=== PATIENT | male | born 1965 | race African-American/Black ===

== ENCOUNTER 2017-06-16 12:18 | Inpatient (IN) | payer OTHER ==
[2017-06-16 19:33] VITALS: BMI 22.8
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
[2017-06-16] MEDS ORDERED: IBUPROFEN 400 MG TABLET (FP) PO PRN (20:45)
[2017-06-16] MEDS ORDERED: MAGNESIUM HYDROX 2400MG/30ML ORAL SUSPENSION 30 ML CUP PO PRN (20:45)
[2017-06-16] MEDS ORDERED: P-EPHED 60MG/TRIPROLIDI 2.5MG TABLET PO PRN (20:45)
[2017-06-16] MEDS ORDERED: MENTHOL/PHENOL 1 EACH UD MM PRN (20:45)
[2017-06-16] MEDS ORDERED: guaiFENesin/D-METHORPHAN HB 10 ML UNIT-DOSE CUPS PO PRN (20:45)
[2017-06-16] MEDS ORDERED: hydrOXYzine PAMOATE 50 MG CAPSULE (FP) PO PRN (20:45)
[2017-06-16] MEDS ORDERED: chlordiazePOXIDE HCL 25 MG CAPSULE PO PRN (20:45)
[2017-06-16] MEDS ORDERED: MAGNESIUM CITRATE 300 ML BOTTLE PO PRN (20:45)
[2017-06-16] MEDS ORDERED: NICOTINE POLACRILEX 4 MG GUM BC PRN (20:45)
[2017-06-16] MEDS ORDERED: MAG HYDROX/AL HYDROX/SIMETH 30 ML UNIT-DOSE CUP PO PRN (20:45)
[2017-06-16] MEDS ORDERED: LOPERAMIDE HCL 2 MG CAPSULE PO PRN (20:45)
[2017-06-16] MEDS ORDERED: ALBUTEROL SO4 18 GM HFA INHALER IH PRN (20:49)
[2017-06-16] MEDS ORDERED: ALBUTEROL SO4 2.5/IPRATROPIUM 0.5 INH SOL 3 ML VIAL.NEB. NEB PRN (20:49)
[2017-06-16] MEDS: GABAPENTIN 300 MG CAPSULE (FP) PO SCH (21:43)
[2017-06-16] MEDS: THIAMINE HCL 100 MG TABLET (FP) PO SCH (21:43)
[2017-06-16] MEDS: chlordiazePOXIDE HCL 25 MG CAPSULE PO SCH (22:37)
[2017-06-17 00:44] LABS: URINE APPEARANCE CLEAR; URINE BILIRUBIN NEGATIVE (NEGATIVE); URINE BLOOD NEGATIVE (NEGATIVE); URINE COLOR YELLOW; URINE GLUCOSE (UA) NEGATIVE (NEGATIVE); URINE KETONE NEGATIVE (NEGATIVE); URINE LEUK ESTERASE NEGATIVE (NEGATIVE); URINE NITRITE NEGATIVE (NEGATIVE); URINE PROTEIN NEGATIVE (NEGATIVE)
[2017-06-17] MEDS: chlordiazePOXIDE HCL 25 MG CAPSULE PO SCH ×3 (06:11→17:33)
[2017-06-17] MEDS: GABAPENTIN 300 MG CAPSULE (FP) PO SCH ×2 (06:11→13:52)
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
[2017-06-17] MEDS: PRENATAL VITAMINS W/ FOLIC ACID TABLET (FP) PO SCH (10:24)
[2017-06-17] MEDS: NICOTINE 21 MG/24 HOURS TOPICAL PATCH TD SCH (10:24)
[2017-06-17 10:36] LABS: HEMOGLOBIN 12.5 GM/dL (11.7-16.9); MCH 32.4 pg (25.7-33.7); MCHC 32.9 g/dl (32.0-35.9); MEAN CELL VOLUME 98.5 fl (80-96); MEAN PLT VOLUME 8.9 fl (7.5-11.1); PLATELET COUNT 161 K/MM3 (134-434); RBC 3.85 M/mm3 (4.00-5.60); RDW 12.6 % (11.9-15.9); WHITE BLOOD COUNT 5.5 K/mm3 (4.0-10.0)
[2017-06-17 10:43] LABS: ALBUMIN 2.9 g/dl (3.4-5.0); ANION GAP 8 (8-16); BLOOD UREA NITROGEN 16 mg/dL (7-18); CALCIUM 7.8 mg/dL (8.5-10.1); CHLORIDE 106 mmol/L (98-107); CO2 25 mmol/L (21-32); CREATININE 1.4 mg/dL (0.7-1.3); GLUCOSE,RANDOM 175 mg/dL (74-106); POTASSIUM 3.8 mmol/L (3.5-5.1); SGOT/AST 33 U/L (15-37); SGPT/ALT 37 U/L (12-78); SODIUM 139 mmol/L (136-145)
[2017-06-17 10:44] LABS: ALK PHOS 75 U/L (45-117); BILIRUBIN,TOTAL 0.3 mg/dL (0.2-1.0); TOT PROT 6.2 g/dl (6.4-8.2)
[2017-06-17] MEDS: EMTRICITABINE 200MG/TENOFOVIR 300MG PO SCH (12:35)
[2017-06-17] MEDS: DOLUTEGRAVIR SODIUM 50 MG TABLET PO SCH (12:35)
[2017-06-17] MEDS: DARUNAVIR ETHANOLATE 800 MG TAB PO SCH (12:35)
[2017-06-17] MEDS: RITONAVIR 100 MG TABLET PO SCH (12:35)
--- NOTE | 2017-06-17 13:16 | PN ---
S CIWA - CIWA Score Nausea/Vomitin Muscle Tremors: 3 Anxiety: 3 Agitation: 2 Paroxysmal Sweats: 4-Forehead w/Sweat Beads Orientation: 0-Oriented Tacttile Disturbances: 1-Very Mild Itch/Numbness Auditory Disturbances: 1-Very Mild Visual Disturbances: 1-Very Mild Sensitivity Headache: 2-Mild CIWA-Ar Total Score: 19 BHS Progress Note (SOAP) Subjective: Shakes, sweats, anxiety and neuropathic pain Objective: 06/17/17 13:15 Vital Signs 06/17/17 06/17/17 06:47 09:26 Temperature 99.3 F Pulse Rate 74 80 Respiratory 18 18 Rate Blood Pressure 122/77 119/80 Laboratory Last Values WBC 5.5 K/mm3 (4.0-10.0) 06/17/17 08:00 RBC 3.85 M/mm3 (4.00-5.60) L 06/17/17 08:00 Hgb 12.5 GM/dL (11.7-16.9) 06/17/17 08:00 Hct 38.0 % (35.4-49) 06/17/17 08:00 MCV 98.5 fl (80-96) H 06/17/17 08:00 MCH 32.4 pg (25.7-33.7) 06/17/17 08:00 MCHC 32.9 g/dl (32.0-35.9) 06/17/17 08:00 RDW 12.6 % (11.9-15.9) 06/17/17 08:00 Plt Count 161 K/MM3 (134-434) 06/17/17 08:00 MPV 8.9 fl (7.5-11.1) D 06/17/17 08:00 Sodium 139 mmol/L (136-145) 06/17/17 08:00 Potassium 3.8 mmol/L (3.5-5.1) 06/17/17 08:00 Chloride 106 mmol/L (98-107) 06/17/17 08:00 Carbon Dioxide 25 mmol/L (21-32) 06/17/17 08:00 Anion Gap 8 (8-16) 06/17/17 08:00 BUN 16 mg/dL (7-18) 06/17/17 08:00 Creatinine 1.4 mg/dL (0.7-1.3) H 06/17/17 08:00 Creat Clearance w eGFR 53.01 (>60) 06/17/17 08:00 Random Glucose 175 mg/dL (74-106) H D 06/17/17 08:00 Calcium 7.8 mg/dL (8.5-10.1) L 06/17/17 08:00 Total Bilirubin 0.3 mg/dL (0.2-1.0) D 06/17/17 08:00 AST 33 U/L (15-37) D 06/17/17 08:00 ALT 37 U/L (12-78) D 06/17/17 08:00 Alkaline Phosphatase 75 U/L (45-117) 06/17/17 08:00 Total Protein 6.2 g/dl (6.4-8.2) L 06/17/17 08:00 Albumin 2.9 g/dl (3.4-5.0) L 06/17/17 08:00 Urine Color Yellow 06/16/17 21:55 Urine Appearance Clear 06/16/17 21:55 Urine pH 5.0 (5.0-8.0) D 06/16/17 21:55 Ur Specific [place] 1.020 (1.001-1.035) 06/16/17 21:55 Urine Protein Negative (NEGATIVE) 06/16/17 21:55 Urine Glucose (UA) Negative (NEGATIVE) 06/16/17 21:55 Urine Ketones Negative (NEGATIVE) 06/16/17 21:55 Urine Blood Negative (NEGATIVE) 06/16/17 21:55 Urine Nitrite Negative (NEGATIVE) 06/16/17 21:55 Urine Bilirubin Negative (NEGATIVE) 06/16/17 21:55 Urine Urobilinogen 2.0 mg/dL (0.2-1.0) 06/16/17 21:55 Ur Leukocyte Esterase Negative (NEGATIVE) 06/16/17 21:55 Labs noted Assessment: 06/17/17 13:16 Withdrawal sx Plan: Continue detox
--- NOTE | 2017-06-17 16:20 | DS ---
[facility] Detox Discharge Summary Admission Date: 06/16/17 Discharge Date: 06/17/17 - History Present History: Alcohol Dependence, Cocaine Dependence, Opioid Dependence Pertinent Past History: HIV +, COPD, Neuropathy and PTSD - Physical Exam Results Vital Signs: Vital Signs Temperature 97.2 F L 06/17/17 14:53 Pulse Rate 84 06/17/17 14:53 Respiratory Rate 18 06/17/17 14:53 Blood Pressure 133/75 06/17/17 14:53 O2 Sat by Pulse Oximetry (%) - Medication Discharge Medications: Ambulatory Orders Nortriptyline HCl [Pamelor] 75 mg PO HS 08/21/14 Darunavir Ethanolate [Prezista -] 800 mg PO DAILY #30 tablet 08/25/14 Dolutegravir Sodium [Tivicay] 50 mg PO DAILY #30 tablet 08/25/14 Emtricitabine/Tenofovir [Truvada -] 1 tab PO DAILY #30 tablet 08/25/14 Gabapentin [Neurontin -] 300 mg PO HS #30 capsule 08/25/14 Ritonavir [Norvir -] 100 mg PO DAILY #30 08/25/14 Gabapentin [Neurontin -] 300 mg PO HS #30 capsule 10/08/14 Quetiapine Fumarate [Seroquel -] 200 mg PO HS #30 tablet 10/09/14 - Diagnosis (1) Alcohol dependence with uncomplicated withdrawal Current Visit: Yes Status: Acute (2) Cocaine dependence, uncomplicated Current Visit: Yes Status: Acute (3) Schizoaffective disorder Current Visit: Yes Status: Chronic (4) COPD (chronic obstructive pulmonary disease) Current Visit: Yes Status: Chronic Qualifiers: COPD type: chronic bronchitis (5) Neuropathy Current Visit: Yes Status: Chronic (6) Nicotine dependence Current Visit: Yes Status: Chronic Qualifiers: Nicotine product type: cigarettes Substance use status: uncomplicated Qualified Code(s): F17.210 - Nicotine dependence, cigarettes, uncomplicated (7) HIV (human immunodeficiency virus infection) Current Visit: No Status: Chronic - AMA Did Patient Leave Against Medical Advice: Yes
--- NOTE | 2017-06-17 16:47 | EKG ---
Test Reason : Blood Pressure : / mmHG Vent. Rate : 068 BPM Atrial Rate : 068 BPM P-R Int : 162 ms QRS Dur : 076 ms QT Int : 414 ms P-R-T Axes : 059 021 128 degrees QTc Int : 440 ms NORMAL SINUS RHYTHM POSSIBLE LEFT ATRIAL ENLARGEMENT SEPTAL INFARCT , AGE UNDETERMINED NONSPECIFIC ST AND T WAVE ABNORMALITY ABNORMAL ECG NO PREVIOUS ECGS AVAILABLE Confirmed by MORALES QUINONES MD ([id number]) on 06/17/2017 4:47:17 PM Referred By: Confirmed By:MORALES QUINONES MD
[2017-06-17] MEDS: ACETAMINOPHEN 325 MG TABLET (FP) PO PRN (17:33)
[2017-06-17] MEDS ORDERED: traZODone HCL 50 MG TABLET (FP) PO SCH (22:00)
[2017-06-18] MEDS: PERPHENAZINE 4 MG TABLET PO SCH ×3 (00:31→22:27)
[2017-06-18] MEDS: chlordiazePOXIDE HCL 25 MG CAPSULE PO SCH ×4 (00:31→17:16)
[2017-06-18] MEDS: THIAMINE HCL 100 MG TABLET (FP) PO SCH ×2 (00:31→22:25)
[2017-06-18] MEDS: GABAPENTIN 300 MG CAPSULE (FP) PO SCH ×4 (00:31→22:25)
[2017-06-18] MEDS: risperiDONE 1 MG TABLET (FP) PO SCH ×2 (00:31→22:25)
[2017-06-18] MEDS: ACETAMINOPHEN 325 MG TABLET (FP) PO PRN (05:25)
[2017-06-18] MEDS ORDERED: PERPHENAZINE 8 MG TABLET PO SCH (10:00)
[2017-06-18] MEDS: RITONAVIR 100 MG TABLET PO SCH (10:32)
[2017-06-18] MEDS: DARUNAVIR ETHANOLATE 800 MG TAB PO SCH (10:32)
[2017-06-18] MEDS: EMTRICITABINE 200MG/TENOFOVIR 300MG PO SCH (10:32)
[2017-06-18] MEDS: SERTRALINE HCL 50 MG TABLET (FP) PO SCH (10:32)
[2017-06-18] MEDS: DOLUTEGRAVIR SODIUM 50 MG TABLET PO SCH (10:32)
[2017-06-18] MEDS: PRENATAL VITAMINS W/ FOLIC ACID TABLET (FP) PO SCH (10:32)
[2017-06-18] MEDS: BENZTROPINE MESYLATE 1 MG TABLET (FP) PO SCH (10:33)
[2017-06-18] MEDS: NICOTINE 21 MG/24 HOURS TOPICAL PATCH TD SCH (10:33)
[2017-06-18] MEDS: AMMONIUM LACTATE 12% LOTION 225 GM BOTTLE TP SCH ×2 (13:39→22:25)
[2017-06-18] MEDS: TOLNAFTATE 1% CREAM 15 GM TUBE TP SCH ×2 (13:40→22:26)
--- NOTE | 2017-06-18 15:12 | PN ---
[facility] CIWA - CIWA Score Nausea/Vomitin-No Nausea/No Vomiting Muscle Tremors: 3 Anxiety: 4-Mod. Anxious/Guarded Agitation: 2 Paroxysmal Sweats: 2 Orientation: 2-Disoriented Date<2 days Tacttile Disturbances: 2-Mild Itch/Numbness/Burn Auditory Disturbances: 0-None Visual Disturbances: 2-Mild Sensitivity Headache: 0-None Present CIWA-Ar Total Score: 17 BHS Progress Note (SOAP) Subjective: Body Aches, Sweating, Anxious, Tremors. Objective: PT. A & O X 2 (UNCERTAIN ABOUT CURRENT DAY / DATE). PT. OBSERVED AMBULATING ON UNIT. NO ACUTE DISTRESS. 06/18/17 15:13 Vital Signs Temperature 97.0 F L 06/18/17 14:43 Pulse Rate LABS ONTED. 85 06/18/17 14:43 Respiratory Rate 18 06/18/17 14:43 Blood Pressure 112/71 06/18/17 14:43 O2 Sat by Pulse Oximetry (%) Laboratory Tests 06/16/17 06/17/17 06/17/17 21:55 08:00 08:00 WBC 5.5 RBC 3.85 L Hgb 12.5 Hct 38.0 MCV 98.5 H MCH 32.4 MCHC 32.9 RDW 12.6 Plt Count 161 MPV 8.9 D Sodium Potassium Chloride Carbon Dioxide Anion Gap BUN Creatinine Creat Clearance w eGFR Random Glucose Calcium Total Bilirubin AST ALT Alkaline Phosphatase Total Protein Albumin Urine Color Yellow Urine Appearance Clear Urine pH 5.0 D Ur Specific [place] 1.020 Urine Protein Negative Urine Glucose (UA) Negative Urine Ketones Negative Urine Blood Negative Urine Nitrite Negative Urine Bilirubin Negative Urine Urobilinogen 2.0 Ur Leukocyte Esterase Negative RPR Titer Hepatitis C Antibody <0.1 06/17/17 06/17/17 08:00 08:00 WBC RBC Hgb Hct MCV MCH MCHC RDW Plt Count MPV Sodium 139 Potassium 3.8 Chloride 106 Carbon Dioxide 25 Anion Gap 8 BUN 16 Creatinine 1.4 H Creat Clearance w eGFR 53.01 Random Glucose 175 H D Calcium 7.8 L Total Bilirubin 0.3 D AST 33 D ALT 37 D Alkaline Phosphatase 75 Total Protein 6.2 L Albumin 2.9 L Urine Color Urine Appearance Urine pH Ur Specific [place] Urine Protein Urine Glucose (UA) Urine Ketones Urine Blood Urine Nitrite Urine Bilirubin Urine Urobilinogen Ur Leukocyte Esterase RPR Titer Nonreactive Hepatitis C Antibody LABS NOTED. Assessment: 06/18/17 15:14 WITHDRAWAL SYMPTOMS. Plan: CONTINUE DETOX. INCREASE DAILY PO FLUID INTAKE. BGM ACBK FOR ELEVATED RANDOM ADMISSION GLUCOSE LEVEL. D/C MAGNESIUM-CONTAINING MEDS. FOR ABNORMAL ADMISSION RENAL LAB VALUES.
[2017-06-18] MEDS: chlordiazePOXIDE 5 MG CAPSULE PO SCH (22:25)
[2017-06-19] MEDS: GABAPENTIN 300 MG CAPSULE (FP) PO SCH (06:03)
[2017-06-19] MEDS: chlordiazePOXIDE 5 MG CAPSULE PO SCH ×2 (06:03→10:06)
[2017-06-19 09:35] VITALS: BP 110/75; PULSE 94; TEMP 97.7
[2017-06-19] MEDS: EMTRICITABINE 200MG/TENOFOVIR 300MG PO SCH (10:06)
[2017-06-19] MEDS: DARUNAVIR ETHANOLATE 800 MG TAB PO SCH (10:06)
[2017-06-19] MEDS: SERTRALINE HCL 50 MG TABLET (FP) PO SCH (10:06)
[2017-06-19] MEDS: DOLUTEGRAVIR SODIUM 50 MG TABLET PO SCH (10:06)
[2017-06-19] MEDS: BENZTROPINE MESYLATE 1 MG TABLET (FP) PO SCH (10:06)
[2017-06-19] MEDS: PRENATAL VITAMINS W/ FOLIC ACID TABLET (FP) PO SCH (10:06)
[2017-06-19] MEDS: RITONAVIR 100 MG TABLET PO SCH (10:06)
[2017-06-19] MEDS: PERPHENAZINE 4 MG TABLET PO SCH (10:06)
[2017-06-19] MEDS: TOLNAFTATE 1% CREAM 15 GM TUBE TP SCH (10:06)
[2017-06-19] MEDS: NICOTINE 21 MG/24 HOURS TOPICAL PATCH TD SCH (10:09)
[2017-06-19] MEDS: AMMONIUM LACTATE 12% LOTION 225 GM BOTTLE TP SCH (10:09)
[2017-06-19] MEDS: ACETAMINOPHEN 325 MG TABLET (FP) PO PRN (10:52)
--- NOTE | 2017-06-19 11:28 | PN ---
BHS Progress Note (SOAP) Subjective: fatigue Achy sweats irritable Objective: 06/19/17 11:26 ambulates steadily Vital Signs Temperature 97.7 F 06/19/17 09:35 Pulse Rate 94 H 06/19/17 09:35 Respiratory Rate 20 06/19/17 09:35 Blood Pressure 110/75 06/19/17 09:35 O2 Sat by Pulse Oximetry (%) Laboratory Last Values WBC 5.5 K/mm3 (4.0-10.0) 06/17/17 08:00 RBC 3.85 M/mm3 (4.00-5.60) L 06/17/17 08:00 Hgb 12.5 GM/dL (11.7-16.9) 06/17/17 08:00 Hct 38.0 % (35.4-49) 06/17/17 08:00 MCV 98.5 fl (80-96) H 06/17/17 08:00 MCH 32.4 pg (25.7-33.7) 06/17/17 08:00 MCHC 32.9 g/dl (32.0-35.9) 06/17/17 08:00 RDW 12.6 % (11.9-15.9) 06/17/17 08:00 Plt Count 161 K/MM3 (134-434) 06/17/17 08:00 MPV 8.9 fl (7.5-11.1) D 06/17/17 08:00 Sodium 139 mmol/L (136-145) 06/17/17 08:00 Potassium 3.8 mmol/L (3.5-5.1) 06/17/17 08:00 Chloride 106 mmol/L (98-107) 06/17/17 08:00 Carbon Dioxide 25 mmol/L (21-32) 06/17/17 08:00 Anion Gap 8 (8-16) 06/17/17 08:00 BUN 16 mg/dL (7-18) 06/17/17 08:00 Creatinine 1.4 mg/dL (0.7-1.3) H 06/17/17 08:00 Creat Clearance w eGFR 53.01 (>60) 06/17/17 08:00 POC Glucometer 112 UNITS (80-120) 06/19/17 06:02 Random Glucose 175 mg/dL (74-106) H D 06/17/17 08:00 Calcium 7.8 mg/dL (8.5-10.1) L 06/17/17 08:00 Total Bilirubin 0.3 mg/dL (0.2-1.0) D 06/17/17 08:00 AST 33 U/L (15-37) D 06/17/17 08:00 ALT 37 U/L (12-78) D 06/17/17 08:00 Alkaline Phosphatase 75 U/L (45-117) 06/17/17 08:00 Total Protein 6.2 g/dl (6.4-8.2) L 06/17/17 08:00 Albumin 2.9 g/dl (3.4-5.0) L 06/17/17 08:00 Urine Color Yellow 06/16/17 21:55 Urine Appearance Clear 06/16/17 21:55 Urine pH 5.0 (5.0-8.0) D 06/16/17 21:55 Ur Specific [place] 1.020 (1.001-1.035) 06/16/17 21:55 Urine Protein Negative (NEGATIVE) 06/16/17 21:55 Urine Glucose (UA) Negative (NEGATIVE) 06/16/17 21:55 Urine Ketones Negative (NEGATIVE) 06/16/17 21:55 Urine Blood Negative (NEGATIVE) 06/16/17 21:55 Urine Nitrite Negative (NEGATIVE) 06/16/17 21:55 Urine Bilirubin Negative (NEGATIVE) 06/16/17 21:55 Urine Urobilinogen 2.0 mg/dL (0.2-1.0) 06/16/17 21:55 Ur Leukocyte Esterase Negative (NEGATIVE) 06/16/17 21:55 RPR Titer Nonreactive (NONREACTIVE) 06/17/17 08:00 Hepatitis C Antibody <0.1 s/co ratio (0.0-0.9) 06/17/17 08:00 labs noted Assessment: 06/19/17 11:27 withdrawal sx Plan: continue detox lidocaine patch for pain
[2017-06-19] MEDS ORDERED: LIDOCAINE 5% TOPICAL PATCH TP SCH (11:30)
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
[2017-06-19] MEDS ORDERED: LIDOCAINE PATCH REMOVAL MC SCH (22:00)
[2017-06-19] MEDS ORDERED: chlordiazePOXIDE HCL 10 MG CAPSULE PO SCH (23:00)
== END 2017-06-19 12:31 | disposition home or self-care (01) | DRG 774 ==
LOC: YASAS 12:18 → EDBD 12:18 → Y3N 18:11
PROVIDERS: ADMIT Internal Medicine; ATTEND Internal Medicine
PROC: HZ2ZZZZ Detoxification Services for Substance Abuse Treatment (ICD-10-PCS; principal; 2017-06-16)
DX: F10.230 Alcohol dependence with withdrawal, uncomplicated (principal); F14.20 Cocaine dependence, uncomplicated; F17.210 Nicotine dependence, cigarettes, uncomplicated; F91.8 Other conduct disorders; F25.9 Schizoaffective disorder, unspecified; F43.10 Post-traumatic stress disorder, unspecified; F19.24 Other psychoactive substance dependence with psychoactive substance-induced mood disorder; J44.9 Chronic obstructive pulmonary disease, unspecified; G62.9 Polyneuropathy, unspecified; M54.30 Sciatica, unspecified side; Z21 Asymptomatic human immunodeficiency virus [HIV] infection status; G47.00 Insomnia, unspecified; E03.9 Hypothyroidism, unspecified; Z87.438 Personal history of other diseases of male genital organs; Z91.5 Personal history of self-harm
CPT/HCPCS: 36415; 80053; 81003; 82962; 85027; 86593; 86803; 93005; 93010; J2794

== ENCOUNTER 2018-07-09 13:54 | Inpatient (IN) | payer OTHER ==
[2018-07-09 14:11] VITALS: BMI 20.9
--- NOTE | 2018-07-09 16:14 | HP ---
CIWA Score Nausea/Vomitin Muscle Tremors: 4-Moderate,w/Arms Extend Anxiety: 3 Agitation: 0-Normal Activity Paroxysmal Sweats: 2 Orientation: 0-Oriented Tacttile Disturbances: 2-Mild Itch/Numbness/Burn Auditory Disturbances: 0-None Visual Disturbances: 0-None Headache: 0-None Present CIWA-Ar Total Score: 16 - Admission Criteria OASAS Guidelines: Admission for Medically Managed Detox: Requires at least one of the followin. CIWA greater than 12 2. Seizures within the past 24 hours 3. Delirium tremens within the past 24 hours 4. Hallucinations within the past 24 hours 5. Acute intervention needed for co occurring medical disorder 6. Acute intervention needed for co occurring psychiatric disorder 7. Severe withdrawal that cannot be handled at a lower level of care (continued vomiting, continued diarrhea, abnormal vital signs) requiring intravenous medication and/or fluids 8. Admission [facility] Chief Complaint: "My Addiction is Out Of Control. I am also [place]-Mandated to be here." Patient is here for Detox from Alcohol. Allergies/Adverse Reactions: Allergies Allergy/AdvReac Type Severity Reaction Status Date / Time No Known Allergies Allergy Verified 07/09/18 15:33 History of Present Illness: Patient is a 53 YO male here for Detox from Alcohol. Patient also reports using Crack Cocaine, K2, and Cabnnabis. Patient also reports history of prescription Opioid use (as part of Pain Management), this confirmed by [facility] Review. UDS today Negative for Opiates. Patient Reports that his Pain Management Medical Provider Discharged him from Practice several months ago because he tested Positive for Cocaine. Patient also reports that he is HIV Positive, and that he has been prescribed medication for this in past ([facility]) but that he has not taken H.I.V. medication for approx. 1 year now. Patient advised to Return to [facility] after Discharge from Detox / Rehab for further evaluation. Patient verbalized understanding of Recommendation. Confidential Drug Utilization Report Search Terms: Manish Harrison, 1965 Search Date: 07/09/2018 04:01:16 PM The Drug Utilization Report below displays all of the controlled substance prescriptions, if any, that your patient has filled in the last twelve months. The information displayed on this report is compiled from pharmacy submissions to the Department, and accurately reflects the information as submitted by the pharmacies. This report was requested by: Chilo Wilkes Heather | Reference #: [id number] You have not added a DWAINE number. Keeping your DWAINE number(s) up to date on the My DWAINE Numbers page will enable the separation of your prescriptions from others ' in the search results. Others' Prescriptions Patient Name: Manish Terry Date: 1965 Address: [address] [place] [address] Sex: Male Rx Written Rx Dispensed Drug Quantity Days Supply Prescriber Name 01/29/2018 01/29/2018 oxycodone-acetaminophen 10-325 mg tab 45 30 Melina-Occean, Stephany 12/25/2017 12/25/2017 oxycodone-acetaminophen 10-325 mg tab 45 30 Melina-Occean, Stephany 11/30/2017 12/07/2017 lyrica 75 mg capsule 40 10 Tayts, Lev DO 11/17/2017 11/22/2017 oxycodone-acetaminophen 10-325 mg tab 45 30 Ribeiro, Andres 11/06/2017 11/10/2017 oxycodone-acetaminophen 10-325 mg tab 20 15 Ribeiro, Andres 10/05/2017 10/05/2017 oxycodone-acetaminophen 10-325 mg tab 45 23 Ribeiro, Andres 09/05/2017 09/11/2017 oxycodone-acetaminophen 10-325 mg tab 30 30 Ribeiro, Andres 08/10/2017 08/10/2017 oxycodone-acetaminophen 10-325 mg tab 30 30 Ribeiro, Andres 07/31/2017 07/31/2017 lorazepam 0.5 mg tablet 30 15 Amelie Oneal) 07/11/2017 07/11/2017 oxycodone-acetaminophen 10-325 mg tab 30 30 Ribeiro, Andres 07/06/2017 07/11/2017 zolpidem tartrate 5 mg tablet 30 30 Natacha Crook MD * - Drugs marked with an asterisk are compound drugs. If the compound drug is made up of more than one controlled substance, then each controlled substance will be a separate row in the table. Exam Limitations: No Limitations - Ebola screening Have you traveled outside of the country in the last 21 days: No Have you had contact with anyone from an Ebola affected area: No Have you been sick,other than usual withdrawal symptoms: No Do you have a fever: No - Review of Systems Constitutional: Diaphoresis, Loss of Appetite, Malaise, Night Sweats, Unintentional Wgt. Loss (Lost Approx. 15 lbs. over last 6 months.), Other ( Patient Ambulates with Assistance of a Walker.) EENT: reports: No Symptoms Reported Respiratory: reports: SOB with Exertion Cardiac: reports: Syncope (X 1, approx. 8 weeks ago. Patient was evaluated at Hospital. No Apparent Reason / Diagnosis Identified, according to Patient.) GI: reports: Diarrhea, Nausea, Poor Appetite, Vomiting, Abdominal cramping : reports: Frequency Musculoskeletal: reports: Back Pain (History of Degenerative Disc Disease.), Joint Pain, Joint Stiffness Integumentary: reports: No Symptoms Reported Neuro: reports: Numbness (In Fingertips of 4th adn 5th Fingers of Rigth Hand and throughout Left Leg and Foot.), Tremors Endocrine: reports: No Symptoms Reported Hematology: reports: No Symptoms Reported Psychiatric: reports: Judgement Intact, Mood/Affect Appropiate, Orientated x3, Anxious, Depressed (Takes Medication.) Other Systems: Reviewed and Negative Patient History - Patient Medical History Hx Anemia: No Hx Asthma: No Hx Chronic Obstructive Pulmonary Disease (COPD): No Hx Cancer: No Hx Cardiac Disorders: No (Possible 'Enlarged Heart.' Pt. did not follow-up after Initially Notified.) Hx Congestive Heart Failure: No Hx Hypertension: No Hx Hypercholesterolemia: No Hx Pacemaker: No HX Cerebrovascular Accident: No Hx Seizures: No Hx Dementia: Yes (self-reported memory loss, Took Medication in past, Unable to Recall Name.) Hx Diabetes: No Hx Gastrointestinal Disorders: No Hx Liver Disease: No Hx Genitourinary Disorders: No Hx Sexually Transmitted Disorders: No Hx Renal Disease (ESRD): No Hx Thyroid Disease: No Hx Human Immunodeficiency Virus (HIV): Yes (TRICAY, TRUVADA, NOVIR, PRIZISTA; Has Not Taken for approx. 1 Year.) Hx Hepatitis C: No (Unable to Recall When Last Tested.) Hx Depression: Yes (Takes Medication.) Hx Suicide Attempt: No (PATIENT DENIES SI / HI. PATIENT DENIES CAH.) Hx Bipolar Disorder: Yes (TAKES MEDICATION.) Hx Schizophrenia: Yes (Schizoaffective Disorder.) Other Medical History: DEGENERATIVE DISC DISEASE. - Patient Surgical History Past Surgical History: No Hx Neurologic Surgery: No Hx Cataract Extraction: No Hx Cardiac Surgery: No Hx Lung Surgery: No Hx Breast Surgery: No Hx Breast Biopsy: No Hx Abdominal Surgery: No Hx Appendectomy: No Hx Cholecystectomy: No Hx Genitourinary Surgery: No Hx Section: No Hx Orthopedic Surgery: No Other Surgical History: DENIES. Anesthesia Reaction: No - PPD History Previous Implant?: Yes Documented Results: Negative w/proof Date: 06/18/17 Results: 0 mm PPD to be Administered?: Yes - Reproductive History Patient is a Female of Child Bearing Age (11 -55 yrs old): No (PATIENT IS MALE.) Patient : No - Smoking Cessation Smoking history: Current every day smoker Have you smoked in the past 12 months: Yes Aproximately how many cigarettes per day: 40 Cigars Per Day: 0 Hx Chewing Tobacco Use: No Initiated information on smoking cessation: Yes 'Breaking Loose' booklet given: 07/09/18 (GIVEN ON UNIT.) - Substance & Tx. History Hx Alcohol Use: Yes Hx Substance Use: Yes Substance Use Type: Alcohol, Cocaine, Marijuana Hx Substance Use Treatment: Yes (Last Detox at [facility]: 06/2017; Detox at [facility], 2016.) - Substances Abused Crack Route: Smoking Frequency: Daily Amount used: 20 grams $700. Age of first use: 12 Date of Last Use: 07/08/18 Alcohol Route: Oral Frequency: Daily Amount used: 2 - 3 pints bacardi Age of first use: 16 Date of Last Use: 07/09/18 Marijuana/Hashish Route: Smoking Frequency: Daily Amount used: 10 mg $400 Age of first use: 52 Date of Last Use: 07/09/18 K2 Route: Smoking Frequency: Daily Amount used: 1 bag $100 Age of first use: 42 Date of Last Use: 07/08/18 Family Disease History - Family Disease History Family Disease History: Heart Disease: Mother (), Other: Grandparent ( alzheimers, substance), Father (etoh, ), Mother, Brother (dementia) Admission Physical Exam BHS - Vital Signs Vital Signs: Vital Signs - 24 hr 07/09/18 14:10 Temperature 97.9 F Pulse Rate 102 H Respiratory 18 Rate Blood Pressure 117/76 - Physical General Appearance: Yes: No Apparent Distress, Nourished, Appropriately Dressed , Tremorous, Sweating, Anxious HEENTM: Yes: Hearing grossly Normal, Normocephalic, Normal Voice, LUIS, Pharynx Normal, Other (White Coating Noted on tongue. Patient Reports History of Oral Thrush.) Respiratory: Yes: Chest Non-Tender, Lungs Clear, No Respiratory Distress, No Accessory Muscle Use Neck: Yes: No masses,lesions,Nodules, Supple, Trachea in good position Breast: Yes: Breast Exam Deferred Cardiology: Yes: Regular Rhythm, Regular Rate, S1, S2, Tachycardia Abdominal: Yes: Normal Bowel Sounds, Non Tender, Flat, Soft Genitourinary: Yes: Within Normal Limits Back: Yes: CVA Tenderness, Decreased Range of Motion Musculoskeletal: Yes: Back pain, Joint Stiffness, Muscle Pain, Other (Patient Uses Walker To Assist with Ambulation.) Extremities: Yes: Normal Capillary Refill, Tremors Neurological: Yes: Fully Oriented, Alert, Normal Mood/Affect, Normal Response Integumentary: Yes: Normal Color, Dry, Warm, Other (Dry Skin Noted on Bilateral Feet.) Lymphatic: Yes: Within Normal Limits - Diagnostic (1) Cannabis dependence, uncomplicated Current Visit: Yes Status: Chronic (2) History of schizoaffective disorder Current Visit: Yes Status: Chronic (3) History of bipolar disorder Current Visit: Yes Status: Chronic (4) History of depression Current Visit: Yes Status: Chronic (5) History of degenerative disc disease Current Visit: Yes Status: Suspected (6) Alcohol dependence with uncomplicated withdrawal Current Visit: Yes Status: Acute (7) Cocaine dependence, uncomplicated Current Visit: Yes Status: Chronic (8) HIV (human immunodeficiency virus infection) Current Visit: Yes Status: Chronic Qualifiers: HIV symptom status: unspecified Qualified Code(s): B20 - Human immunodeficiency virus [HIV] disease (9) Neuropathy Current Visit: Yes Status: Chronic (10) Nicotine dependence Current Visit: Yes Status: Chronic Qualifiers: Nicotine product type: cigarettes Substance use status: uncomplicated Qualified Code(s): F17.210 - Nicotine dependence, cigarettes, uncomplicated (11) Memory loss Current Visit: Yes Status: Suspected (12) Enlarged heart Current Visit: Yes Status: Suspected Cleared for Admission S - Detox or Rehab S Level of Care: Medically Managed Detox Regimen/Protocol: Librium BHS Breath Alcohol Content Breath Alcohol Content: 0 Urine Drug Screen - Results Drug Screen Negative: No Urine Drug Screen Results: THC-Marijuana, AMBROSE-Cocaine
[2018-07-09] MEDS ORDERED: MAG HYDROX/AL HYDROX/SIMETH 30 ML UNIT-DOSE CUP PO PRN (16:44)
[2018-07-09] MEDS ORDERED: MENTHOL/PHENOL 1 EACH UD MM PRN (16:44)
[2018-07-09] MEDS ORDERED: P-EPHED 60MG/TRIPROLIDI 2.5MG TABLET PO PRN (16:44)
[2018-07-09] MEDS ORDERED: ACETAMINOPHEN 325 MG TABLET (FP) PO PRN (16:44)
[2018-07-09] MEDS ORDERED: LOPERAMIDE HCL 2 MG CAPSULE PO PRN (16:44)
[2018-07-09] MEDS ORDERED: MAGNESIUM HYDROX 2400MG/30ML ORAL SUSPENSION 30 ML CUP PO PRN (16:44)
[2018-07-09] MEDS ORDERED: guaiFENesin/D-METHORPHAN HB 10 ML UNIT-DOSE CUPS PO PRN (16:44)
[2018-07-09] MEDS ORDERED: chlordiazePOXIDE HCL 25 MG CAPSULE PO ONE (16:44)
[2018-07-09] MEDS ORDERED: chlordiazePOXIDE HCL 25 MG CAPSULE PO PRN (16:44)
[2018-07-09] MEDS ORDERED: IBUPROFEN 400 MG TABLET (FP) PO PRN (16:44)
[2018-07-09] MEDS ORDERED: MAGNESIUM CITRATE 300 ML BOTTLE PO PRN (16:44)
[2018-07-09] MEDS ORDERED: NICOTINE POLACRILEX 2 MG GUM BC PRN (16:44)
[2018-07-09] MEDS: NICOTINE 21 MG/24 HOURS TOPICAL PATCH TD SCH (17:51)
[2018-07-09] MEDS: chlordiazePOXIDE HCL 25 MG CAPSULE PO SCH ×2 (17:52→23:01)
[2018-07-09] MEDS: CLOTRIMAZOLE 10 MG TROCHE (FP) PO SCH ×2 (18:42→22:37)
[2018-07-09] MEDS ORDERED: MELATONIN 5 MG TABLETS PO PRN (22:00)
[2018-07-09] MEDS: THIAMINE HCL 100 MG TABLET (FP) PO SCH (22:39)
[2018-07-09] MEDS: GABAPENTIN 300 MG CAPSULE (FP) PO SCH (22:39)
[2018-07-09] MEDS: TOLNAFTATE 1% CREAM 15 GM TUBE TP SCH (22:39)
[2018-07-10] MEDS: GABAPENTIN 300 MG CAPSULE (FP) PO SCH ×3 (05:57→22:30)
[2018-07-10] MEDS: CLOTRIMAZOLE 10 MG TROCHE (FP) PO SCH ×5 (05:57→22:31)
[2018-07-10] MEDS: chlordiazePOXIDE HCL 25 MG CAPSULE PO SCH ×4 (05:57→22:31)
--- NOTE | 2018-07-10 09:58 | PN ---
S CIWA - CIWA Score Nausea/Vomitin-Mild Nausea/No Vomiting Muscle Tremors: 3 Anxiety: 3 Agitation: 3 Paroxysmal Sweats: 1-Minimal Palms Moist Orientation: 1-Uncertain about Date Tacttile Disturbances: 0-None Auditory Disturbances: 0-None Visual Disturbances: 0-None Headache: 1-Very Mild CIWA-Ar Total Score: 13 BHS Progress Note (SOAP) Subjective: tremor sweating irritable patient wants opiate based medication for pain that he is in pain management program patient is unable to provide the pharmacy nor provider who prescribes oxy for [facility] teaching on risks of opiate based pain medication informed keep a list of medication in his wallet and bring bottles of medication with him to medical mental and addiction appointments Objective: 07/10/18 09:57 Vital Signs Temperature 98.5 F 07/10/18 09:25 Pulse Rate 99 H 07/10/18 09:25 Respiratory Rate 20 07/10/18 09:25 Blood Pressure 118/84 07/10/18 09:25 O2 Sat by Pulse Oximetry (%) lab pending Assessment: 07/10/18 09:58 alcohol withdrawal sx hiv neuropathy Plan: continue detox patient is taking truvada tivicay and norvia for hiv last filled 30 days on as well as bactrim ds patient admitted that he is none adherence with his hiv medication last dose " a while ago" discuss benefits of adherence with prescribed medications strong recommend the patient to carry a list of medication in his wallet and bring bottles with him to appointments
[2018-07-10] MEDS ORDERED: SULFAMETHOXAZOLE/TRIMETHOPRIM 800MG/160MG D.S. TABLET PO SCH (10:00)
[2018-07-10] MEDS ORDERED: AMMONIUM LACTATE 12% LOTION 225 GM BOTTLE TP SCH (10:00)
[2018-07-10] MEDS ORDERED: PRENATAL VITAMINS W/ FOLIC ACID TABLET (FP) PO SCH (10:00)
[2018-07-10] MEDS: TOLNAFTATE 1% CREAM 15 GM TUBE TP SCH ×2 (10:06→22:31)
[2018-07-10] MEDS: NICOTINE 21 MG/24 HOURS TOPICAL PATCH TD SCH (10:07)
[2018-07-10 10:20] LABS: ALBUMIN 3.3 g/dl (3.4-5.0); ALK PHOS 83 U/L (45-117); ANION GAP 6 MMOL/L (8-16); BILIRUBIN,TOTAL 0.2 mg/dL (0.2-1); BLOOD UREA NITROGEN 14 mg/dL (7-18); CALCIUM 8.5 mg/dL (8.5-10.1); CHLORIDE 103 mmol/L (98-107); CO2 26 mmol/L (21-32); CREATININE 1.3 mg/dL (0.55-1.3); GLUCOSE,RANDOM 151 mg/dL (74-106); HEMATOCRIT 39.4 % (35.4-49); HEMOGLOBIN 13.5 GM/dL (11.7-16.9); MCH 32.4 pg (25.7-33.7); MCHC 34.3 g/dl (32.0-35.9); MEAN CELL VOLUME 94.5 fl (80-96); MEAN PLT VOLUME 8.3 fl (7.5-11.1); PLATELET COUNT 210 K/MM3 (134-434); POTASSIUM 4.3 mmol/L (3.5-5.1); RBC 4.17 M/mm3 (4.00-5.60); SGOT/AST 33 U/L (15-37); SGPT/ALT 19 U/L (13-61); SODIUM 135 mmol/L (136-145); WHITE BLOOD COUNT 5.4 K/mm3 (4.0-10.0)
[2018-07-10] MEDS ORDERED: FLU VACCINE QUAD 60 MCG/0.5 ML (MDV 18-19) IM ONE (12:00)
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
--- NOTE | 2018-07-10 15:11 | EKG ---
Test Reason : Blood Pressure : / mmHG Vent. Rate : 095 BPM Atrial Rate : 095 BPM P-R Int : 162 ms QRS Dur : 072 ms QT Int : 362 ms P-R-T Axes : 067 024 128 degrees QTc Int : 454 ms NORMAL SINUS RHYTHM MINIMAL VOLTAGE CRITERIA FOR LVH, MAY BE NORMAL VARIANT NONSPECIFIC T WAVE ABNORMALITY ABNORMAL ECG Confirmed by Jd De Luna MD ([id number]) on 07/10/2018 3:11:03 PM Referred By: Confirmed By:Jd De Luna MD
[2018-07-10] MEDS: NAPROXEN 375 MG TABLET (FP) PO PRN ×2 (15:52→22:30)
[2018-07-10] MEDS: THIAMINE HCL 100 MG TABLET (FP) PO SCH (22:31)
[2018-07-11] MEDS: chlordiazePOXIDE HCL 25 MG CAPSULE PO SCH (04:47)
[2018-07-11] MEDS: CLOTRIMAZOLE 10 MG TROCHE (FP) PO SCH (06:04)
[2018-07-11] MEDS: GABAPENTIN 300 MG CAPSULE (FP) PO SCH (06:04)
[2018-07-11 08:48] VITALS: BP 128/76; PULSE 87; TEMP 95.9
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
--- NOTE | 2018-07-11 16:00 | PN ---
S CIWA - CIWA Score Nausea/Vomitin-No Nausea/No Vomiting Muscle Tremors: None Anxiety: 1-Mildly Anxious Agitation: 2 Paroxysmal Sweats: No Perspiration Orientation: 0-Oriented Tacttile Disturbances: 0-None Auditory Disturbances: 0-None Visual Disturbances: 0-None Headache: 0-None Present CIWA-Ar Total Score: 3
[2018-07-11] MEDS ORDERED: chlordiazePOXIDE 5 MG CAPSULE PO SCH (17:00)
[2018-07-12] MEDS ORDERED: chlordiazePOXIDE HCL 10 MG CAPSULE PO SCH (17:00)
== END 2018-07-11 09:04 | DRG 774 ==
LOC: YASAS 13:54 → Y3N 17:14
PROVIDERS: ADMIT Surgery; ATTEND Surgery
PROC: HZ2ZZZZ Detoxification Services for Substance Abuse Treatment (ICD-10-PCS; principal; 2018-07-09)
DX: F10.230 Alcohol dependence with withdrawal, uncomplicated (principal); F14.20 Cocaine dependence, uncomplicated; F12.20 Cannabis dependence, uncomplicated; F17.210 Nicotine dependence, cigarettes, uncomplicated; F19.24 Other psychoactive substance dependence with psychoactive substance-induced mood disorder; F25.9 Schizoaffective disorder, unspecified; F31.9 Bipolar disorder, unspecified; G47.00 Insomnia, unspecified; Z21 Asymptomatic human immunodeficiency virus [HIV] infection status; G62.9 Polyneuropathy, unspecified; B18.2 Chronic viral hepatitis C; R00.0 Tachycardia, unspecified; Z91.19 Patient's noncompliance with other medical treatment and regimen
CPT/HCPCS: 36415; 80053; 85027; 86593; 90688; 93005; 93010; G0008

== ENCOUNTER 2019-05-29 11:26 | Inpatient (IN) | payer OTHER ==
[2019-05-29 11:56] VITALS: BMI 20.9
--- NOTE | 2019-05-29 14:23 | HP ---
CIWA Score Nausea/Vomitin-No Nausea/No Vomiting Muscle Tremors: 1-None Visible, but [place] Anxiety: 1-Mildly Anxious Agitation: 1-Slight > Activity Paroxysmal Sweats: No Perspiration Orientation: 0-Oriented Tacttile Disturbances: 0-None Auditory Disturbances: 0-None Visual Disturbances: 0-None Headache: 1-Very Mild CIWA-Ar Total Score: 4 - Admission Criteria OASAS Guidelines: Admission for Medically Managed Detox: Requires at least one of the followin. CIWA greater than 12 2. Seizures within the past 24 hours 3. Delirium tremens within the past 24 hours 4. Hallucinations within the past 24 hours 5. Acute intervention needed for co occurring medical disorder 6. Acute intervention needed for co occurring psychiatric disorder 7. Severe withdrawal that cannot be handled at a lower level of care (continued vomiting, continued diarrhea, abnormal vital signs) requiring intravenous medication and/or fluids 8. Admitting History and Physical - Admission Chief Complaint: i need help to go to rehab from alcohol and cocaine History of Present Illness: this 4 years old male with alcohol and cocaine dependence,heroin abused, seeking help ,rehab admitted at [facility] for 05/24/19 to 05/28/19 but relapsed right away hiv since 1994 non compliance,did not take medication for 6 months left hip avascular necrosis in [facility] 10.19 confined to wheelchair levy loss neuropathy nicotine dependence 1 pack/day\ambulation with wheelchair and cane bipolar disorder,depression homeless no suicidal,no homicidal History Source: Patient Limitations to Obtaining History: No Limitations - Past Medical History Infectious Disease: Yes: HIV (since 1994) Psych: Yes: Anxiety, Bipolar, Depression Musculoskeletal: Yes: Osteoarthritis, Other (left knee) Additional Past Medical History: avascular necrosis left hip pending surgery - Smoking History Smoking history: Current every day smoker Have you smoked in the past 12 months: Yes Aproximately how many cigarettes per day: 20 - Alcohol/Substance Use Hx Alcohol Use: Yes History of Substance Use: reports: Cocaine, Heroin - Social History Usual Living Arrangement: Yes: Other (homeless) ADL: Support Services Occupation: on disability History of Recent Travel: No Other Social History: this 54 years old male with alcohol ,cocaine dependence, heroin abused,use wheelchair,cane for ambulatory aids for avascular necrosis left hip,. hiv since 1994,also using the cane,complete detox at [facility] for 05/24/19 to 05/28/19, for rehab inpatient,non compliance with medication Admission ROS S - HPI Chief Complaint: for rehab from alcohol,cocaine,heroin abused Allergies/Adverse Reactions: Allergies Allergy/AdvReac Type Severity Reaction Status Date / Time No Known Allergies Allergy Verified 05/29/19 11:48 - Ebola screening Have you traveled outside of the country in the last 21 days: No (NN) Have you had contact with anyone from an Ebola affected area: No Have you been sick,other than usual withdrawal symptoms: No - Review of Systems Constitutional: No Symptoms Reported EENT: reports: No Symptoms Reported Respiratory: reports: No Symptoms reported Cardiac: reports: No Symptoms Reported GI: reports: Poor Appetite : reports: No Symptoms Reported Musculoskeletal: reports: Back Pain, Other (avacular necrosis left hip, arthritis left knee) Integumentary: reports: No Symptoms Reported Neuro: reports: No Symptoms reported Endocrine: reports: No Symptoms Reported Hematology: reports: No Symptoms Reported Psychiatric: reports: No Sypmtoms Reported, Judgement Intact, Mood/Affect Appropiate, Orientated x3, other (bipolar disorder) Other Systems: Reviewed and Negative Patient History - Patient Medical History Hx Anemia: No Hx Asthma: No Hx Chronic Obstructive Pulmonary Disease (COPD): No Hx Cancer: No Hx Cardiac Disorders: No (Possible 'Enlarged Heart.' Pt. did not follow-up after Initially Notified.) Hx Congestive Heart Failure: No Hx Hypertension: No Hx Hypercholesterolemia: No Hx Pacemaker: No HX Cerebrovascular Accident: No Hx Seizures: No Hx Dementia: Yes Hx Diabetes: No Hx Gastrointestinal Disorders: No Hx Liver Disease: No Hx Genitourinary Disorders: No Hx Sexually Transmitted Disorders: No Hx Renal Disease (ESRD): No Hx Thyroid Disease: No Hx Human Immunodeficiency Virus (HIV): Yes (TRICAY, TRUVADA, NOVIR, PRIZISTA; Has Not Taken for approx. 1 Year.) Hx Hepatitis C: No (Unable to Recall When Last Tested.) Hx Depression: Yes (Takes Medication.) Hx Suicide Attempt: Yes (YEARS AGO PATIENT ATTEMPTED TO HANG HIMSELF) Hx Bipolar Disorder: Yes (TAKES MEDICATION.) Hx Schizophrenia: Yes (Schizoaffective Disorder.) Other Medical History: no suicidal,no homicidal - Patient Surgical History Past Surgical History: No Hx Neurologic Surgery: No Hx Cataract Extraction: No Hx Cardiac Surgery: No Hx Lung Surgery: No Hx Breast Surgery: No Hx Breast Biopsy: No Hx Abdominal Surgery: No Hx Appendectomy: No Hx Cholecystectomy: No Hx Genitourinary Surgery: No Hx Section: No Hx Orthopedic Surgery: No Other Surgical History: DENIES. Anesthesia Reaction: No - PPD History Previous Implant?: Yes Documented Results: Negative w/proof Implanted On Prior [facility] Admission?: Yes Date: 07/11/18 Results: 0 mm PPD to be Administered?: No - Smoking Cessation Smoking history: Current every day smoker Have you smoked in the past 12 months: Yes Aproximately how many cigarettes per day: 20 Cigars Per Day: 0 Hx Chewing Tobacco Use: No Initiated information on smoking cessation: Yes 'Breaking Loose' booklet given: 05/29/19 - Substance & Tx. History Hx Alcohol Use: Yes Hx Substance Use: Yes Substance Use Type: Alcohol, Cocaine Hx Substance Use Treatment: Yes ([facility] 05/24/19 to 05/28/19) - Substances abused Alcohol Substance route: Oral Frequency: Daily Amount used: 4 PINTS OF VODKA/GIN, Age of first use: 51 Date of last use: 05/28/19 Cocaine Substance route: Smoking Frequency: Daily Amount used: 100$ Age of first use: 48 Date of last use: 05/28/19 Heroin Substance route: Inhalation Frequency: 1-3 times last 30 days Amount used: 1 bag Age of first use: 54 Date of last use: 05/29/19 Admission Physical Exam BHS - Vital Signs Vital Signs: Vital Signs - 24 hr 05/29/19 11:53 Temperature 97.0 F L Pulse Rate 111 H Respiratory 18 Rate Blood Pressure 112/69 - Physical General Appearance: Yes: No Apparent Distress HEENTM: Yes: Within Normal Limits, LUIS, Pharynx Normal Respiratory: Yes: Lungs Clear, Normal Breath Sounds, No Respiratory Distress Neck: Yes: Within Normal Limits, Supple, Trachea in good position Breast: Yes: Within Normal Limits Cardiology: Yes: Within Normal Limits, Regular Rhythm, Regular Rate, S1, S2 Abdominal: Yes: Within Normal Limits, Normal Bowel Sounds, Non Tender, Flat, Soft Genitourinary: Yes: Within Normal Limits Back: Yes: Within Normal Limits Musculoskeletal: Yes: Muscle Pain Extremities: Yes: Within Normal Limits Neurological: Yes: stripper latex II-XII NML intact, Fully Oriented, Alert, Motor Strength 5/5 Integumentary: Yes: Within Normal Limits Lymphatic: Yes: Within Normal Limits - Diagnostic (1) Alcohol dependence Current Visit: Yes Status: Acute (2) HIV (human immunodeficiency virus infection) Current Visit: No Status: Chronic Qualifiers: HIV symptom status: unspecified Qualified Code(s): B20 - Human immunodeficiency virus [HIV] disease (3) History of bipolar disorder Current Visit: No Status: Chronic (4) Neuropathy Current Visit: No Status: Chronic (5) Cocaine dependence Current Visit: Yes Status: Acute (6) Weight loss Current Visit: Yes Status: Acute (7) Wheel chair as ambulatory aid Current Visit: Yes Status: Acute (8) Ambulates with cane Current Visit: Yes Status: Acute Cleared for Admission BHS - Detox or Rehab Claeared for Rehab Admission: Yes Breathalyzer - Breathalyzer Breathalyzer: 0 Urine Drug Screen - Test Device Lot number: [id number] Expiration date: 01/02/21 - Control Is test valid?: Yes - Results Drug screen NEGATIVE: No Urine drug screen results: AMBROSE-Cocaine, FEN-Fentanyl, MOP-Opiates, BZO- Benzodiazepines Inpatient Rehab Admission - Rehab Decision to Admit Inpatient rehab admission?: Yes - Initial Determination Are CD services needed?: Yes Free of communicable disease: Yes Not in need of hospitalization: Yes - Rehab Admission Criteria Previous failed treatment: Yes Poor recovery environment: Yes Comorbidities: Yes Lacks judgement: No Patient is meeting Inpatient Rehab admission criteria:: Yes
[2019-05-29] MEDS ORDERED: hydrOXYzine PAMOATE 50 MG CAPSULE (FP) PO PRN (14:43)
[2019-05-29] MEDS ORDERED: ACETAMINOPHEN 325 MG TABLET (FP) PO PRN (14:43)
[2019-05-29] MEDS ORDERED: MAG HYDROX/AL HYDROX/SIMETH 30 ML UNIT-DOSE CUP PO PRN (14:43)
[2019-05-29] MEDS ORDERED: P-EPHED 60MG/TRIPROLIDI 2.5MG TABLET PO PRN (14:43)
[2019-05-29] MEDS ORDERED: NICOTINE POLACRILEX 2 MG GUM BC PRN (14:43)
[2019-05-29] MEDS ORDERED: LOPERAMIDE HCL 2 MG CAPSULE PO PRN (14:43)
[2019-05-29] MEDS ORDERED: MAGNESIUM CITRATE 300 ML BOTTLE PO PRN (14:43)
[2019-05-29] MEDS ORDERED: MAGNESIUM HYDROX 2400MG/30ML ORAL SUSPENSION 30 ML CUP PO PRN (14:43)
[2019-05-29] MEDS ORDERED: guaiFENesin 200 MG/10 ML 10 ML UNIT-DOSE CUPS PO PRN (14:43)
[2019-05-29] MEDS ORDERED: MENTHOL/PHENOL 1 EACH UD MM PRN (14:43)
[2019-05-29] MEDS: GABAPENTIN 300 MG CAPSULE (FP) PO SCH ×2 (16:40→21:29)
[2019-05-29] MEDS: IBUPROFEN 400 MG TABLET (FP) PO PRN (18:41)
[2019-05-29] MEDS: MELATONIN 5 MG TABLETS PO PRN (21:29)
[2019-05-29] MEDS: THIAMINE HCL 100 MG TABLET (FP) PO SCH (21:29)
[2019-05-29 22:38] LABS: URINE APPEARANCE TURBID; URINE BILIRUBIN NEGATIVE (NEGATIVE); URINE COLOR YELLOW; URINE GLUCOSE (UA) NEGATIVE (NEGATIVE); URINE KETONE NEGATIVE (NEGATIVE); URINE LEUK ESTERASE NEGATIVE (NEGATIVE); URINE NITRITE NEGATIVE (NEGATIVE); URINE PROTEIN NEGATIVE (NEGATIVE)
[2019-05-30] MEDS: GABAPENTIN 300 MG CAPSULE (FP) PO SCH ×3 (06:02→21:20)
[2019-05-30] MEDS: IBUPROFEN 400 MG TABLET (FP) PO PRN (06:03)
[2019-05-30] MEDS: PRENATAL VITAMINS W/ FOLIC ACID TABLET (FP) PO SCH (09:50)
[2019-05-30] MEDS ORDERED: ACETAMINOPHEN 325 MG TABLET (FP) PO PRN (10:11)
[2019-05-30 10:15] LABS: HEMATOCRIT 40.5 % (35.4-49); HEMOGLOBIN 13.7 GM/dL (11.7-16.9); MCH 33.3 pg (25.7-33.7); MCHC 33.9 g/dl (32.0-35.9); MEAN CELL VOLUME 98.2 fl (80-96); MEAN PLT VOLUME 9.4 fl (7.5-11.1); PLATELET COUNT 237 K/MM3 (134-434); RBC 4.12 M/mm3 (4.00-5.60); RDW 13.6 % (11.9-15.9); WHITE BLOOD COUNT 3.2 K/mm3 (4.0-10.0)
[2019-05-30 10:42] LABS: ALBUMIN 4.1 g/dl (3.4-5.0); BILIRUBIN,TOTAL 0.3 mg/dL (0.2-1); BLOOD UREA NITROGEN 23.8 mg/dL (7-18); CALCIUM 9.4 mg/dL (8.5-10.1); CREATININE 1.3 mg/dL (0.55-1.3); POTASSIUM 4.2 mmol/L (3.5-5.1); TOT PROT 7.7 g/dl (6.4-8.2)
[2019-05-30] MEDS: LIDOCAINE 5% TOPICAL PATCH TP SCH (11:50)
--- NOTE | 2019-05-30 14:33 | PN ---
S Progress Note (SOAP) Subjective: Patient with chronic pain r/t bilateral avascular necrosis of hips, hx of HIV disease, treated while incarcerated. Confirmed his regimen of dolutegravir and Descovy, last dose on 05/27 when in [facility]. Discussed with Kathi, the pharmacist and ordered. Patient aware.
[2019-05-30] MEDS: MELATONIN 5 MG TABLETS PO PRN (21:21)
[2019-05-30] MEDS: THIAMINE HCL 100 MG TABLET (FP) PO SCH (21:21)
[2019-05-30] MEDS: METHYL SALICYLATE/MENTHOL OINT 30 GM TUBE TP SCH (21:21)
[2019-05-30] MEDS: LIDOCAINE PATCH REMOVAL MC SCH (21:21)
[2019-05-30] MEDS: IBUPROFEN 600 MG TABLET (FP) PO PRN (21:22)
[2019-05-31] MEDS: IBUPROFEN 600 MG TABLET (FP) PO PRN ×2 (06:17→21:16)
[2019-05-31] MEDS: GABAPENTIN 300 MG CAPSULE (FP) PO SCH ×3 (06:17→21:15)
[2019-05-31] MEDS: EMTRICITABINE/TENOFOV ALAFENAM (DESCOVY) TABLET PO SCH (07:05)
[2019-05-31] MEDS: DOLUTEGRAVIR SODIUM 50 MG TABLET (NON-FORMULARY) PO SCH (07:05)
[2019-05-31] MEDS: LIDOCAINE 5% TOPICAL PATCH TP SCH (09:55)
[2019-05-31] MEDS: PRENATAL VITAMINS W/ FOLIC ACID TABLET (FP) PO SCH (09:55)
[2019-05-31] MEDS: METHYL SALICYLATE/MENTHOL OINT 30 GM TUBE TP SCH (09:56)
[2019-05-31] MEDS: MELATONIN 5 MG TABLETS PO PRN (21:15)
[2019-05-31] MEDS: LIDOCAINE PATCH REMOVAL MC SCH (21:15)
[2019-05-31] MEDS: THIAMINE HCL 100 MG TABLET (FP) PO SCH (21:15)
[2019-06-01] MEDS: IBUPROFEN 600 MG TABLET (FP) PO PRN ×2 (06:05→21:13)
[2019-06-01] MEDS: GABAPENTIN 300 MG CAPSULE (FP) PO SCH ×3 (06:05→21:13)
[2019-06-01] MEDS: EMTRICITABINE/TENOFOV ALAFENAM (DESCOVY) TABLET PO SCH (07:15)
[2019-06-01] MEDS: DOLUTEGRAVIR SODIUM 50 MG TABLET (NON-FORMULARY) PO SCH (07:15)
[2019-06-01] MEDS: LIDOCAINE 5% TOPICAL PATCH TP SCH (09:16)
[2019-06-01] MEDS: PRENATAL VITAMINS W/ FOLIC ACID TABLET (FP) PO SCH (09:16)
[2019-06-01] MEDS: METHYL SALICYLATE/MENTHOL OINT 30 GM TUBE TP SCH (09:17)
[2019-06-01] MEDS: THIAMINE HCL 100 MG TABLET (FP) PO SCH (21:13)
[2019-06-01] MEDS: MELATONIN 5 MG TABLETS PO PRN (21:13)
[2019-06-01] MEDS: LIDOCAINE PATCH REMOVAL MC SCH (21:13)
[2019-06-02] MEDS: GABAPENTIN 300 MG CAPSULE (FP) PO SCH ×3 (06:55→21:51)
[2019-06-02] MEDS: IBUPROFEN 600 MG TABLET (FP) PO PRN ×2 (06:57→23:52)
[2019-06-02] MEDS: EMTRICITABINE/TENOFOV ALAFENAM (DESCOVY) TABLET PO SCH (07:02)
[2019-06-02] MEDS: DOLUTEGRAVIR SODIUM 50 MG TABLET (NON-FORMULARY) PO SCH (07:02)
[2019-06-02] MEDS: LIDOCAINE 5% TOPICAL PATCH TP SCH (09:43)
[2019-06-02] MEDS: PRENATAL VITAMINS W/ FOLIC ACID TABLET (FP) PO SCH (09:43)
[2019-06-02] MEDS: METHYL SALICYLATE/MENTHOL OINT 30 GM TUBE TP SCH (09:43)
[2019-06-02] MEDS: LIDOCAINE PATCH REMOVAL MC SCH (21:51)
[2019-06-02] MEDS: THIAMINE HCL 100 MG TABLET (FP) PO SCH (21:51)
[2019-06-03] MEDS: GABAPENTIN 300 MG CAPSULE (FP) PO SCH (07:04)
[2019-06-03] MEDS: EMTRICITABINE/TENOFOV ALAFENAM (DESCOVY) TABLET PO SCH (07:05)
[2019-06-03] MEDS: DOLUTEGRAVIR SODIUM 50 MG TABLET (NON-FORMULARY) PO SCH (07:05)
[2019-06-03] MEDS: IBUPROFEN 600 MG TABLET (FP) PO PRN ×2 (07:06→23:37)
[2019-06-03 07:30] VITALS: BP 113/73; PULSE 59; TEMP 98.1
[2019-06-03] MEDS: METHYL SALICYLATE/MENTHOL OINT 30 GM TUBE TP SCH (09:56)
[2019-06-03] MEDS: LIDOCAINE 5% TOPICAL PATCH TP SCH (09:56)
[2019-06-03] MEDS: PRENATAL VITAMINS W/ FOLIC ACID TABLET (FP) PO SCH (09:56)
[2019-06-03] MEDS: THIAMINE HCL 100 MG TABLET (FP) PO SCH (23:04)
[2019-06-03] MEDS: LIDOCAINE PATCH REMOVAL MC SCH (23:04)
--- NOTE | 2019-06-04 00:38 | DS ---
[facility] Rehab Discharge Summary - [facility] Rehab Discharge Summary Admission Date: 05/29/19 Discharge Date: 06/04/19 - History Additional Comments: Patient is leaving against medical advice. Patient is unable to provide a significant reason for leaving. Risks and consequences of his action reinforced. Patient is alert and oriented to person, place and time. He is medically stable to go home. Pertinent Past History: Alcohol dependence, opioid dependence, nicotine dependence, Neuropathy, Bronchitis, PTSD, COPD, HIV+, Sciatica, Schizophrenia and depression - Discharge Physical Exam Vital Signs: Vital Signs Temperature 98.1 F 06/03/19 06:29 Pulse Rate 59 L 06/03/19 06:29 Respiratory Rate 20 06/03/19 06:29 Blood Pressure 113/73 06/03/19 06:29 O2 Sat by Pulse Oximetry (%) Laboratory Last Values WBC 3.2 K/mm3 (4.0-10.0) L 05/30/19 07:10 RBC 4.12 M/mm3 (4.00-5.60) 05/30/19 07:10 Hgb 13.7 GM/dL (11.7-16.9) 05/30/19 07:10 Hct 40.5 % (35.4-49) 05/30/19 07:10 MCV 98.2 fl (80-96) H 05/30/19 07:10 MCH 33.3 pg (25.7-33.7) 05/30/19 07:10 MCHC 33.9 g/dl (32.0-35.9) 05/30/19 07:10 RDW 13.6 % (11.9-15.9) 05/30/19 07:10 Plt Count 237 K/MM3 (134-434) 05/30/19 07:10 MPV 9.4 fl (7.5-11.1) D 05/30/19 07:10 Sodium 139 mmol/L (136-145) 05/30/19 07:10 Potassium 4.2 mmol/L (3.5-5.1) 05/30/19 07:10 Chloride 103 mmol/L (98-107) 05/30/19 07:10 Carbon Dioxide 31 mmol/L (21-32) 05/30/19 07:10 Anion Gap 4 MMOL/L (8-16) L 05/30/19 07:10 BUN 23.8 mg/dL (7-18) H 05/30/19 07:10 Creatinine 1.3 mg/dL (0.55-1.3) 05/30/19 07:10 Est GFR (CKD-EPI)AfAm 71.19 05/30/19 07:10 Est GFR (CKD-EPI)NonAf 61.43 05/30/19 07:10 Random Glucose 97 mg/dL (74-106) 05/30/19 07:10 Calcium 9.4 mg/dL (8.5-10.1) 05/30/19 07:10 Total Bilirubin 0.3 mg/dL (0.2-1) 05/30/19 07:10 AST 23 U/L (15-37) 05/30/19 07:10 ALT 22 U/L (13-61) 05/30/19 07:10 Alkaline Phosphatase 75 U/L (45-117) 05/30/19 07:10 Total Protein 7.7 g/dl (6.4-8.2) 05/30/19 07:10 Albumin 4.1 g/dl (3.4-5.0) 05/30/19 07:10 Urine Color Yellow 05/29/19 21:30 Urine Appearance Turbid 05/29/19 21:30 Urine pH 5.0 (5.0-8.0) 05/29/19 21:30 Ur Specific [place] 1.034 (1.010-1.035) 05/29/19 21:30 Urine Protein Negative (NEGATIVE) 05/29/19 21:30 Urine Glucose (UA) Negative (NEGATIVE) 05/29/19 21:30 Urine Ketones Negative (NEGATIVE) 05/29/19 21:30 Urine Blood Negative (NEGATIVE) 05/29/19 21:30 Urine Nitrite Negative (NEGATIVE) 05/29/19 21:30 Urine Bilirubin Negative (NEGATIVE) 05/29/19 21:30 Urine Urobilinogen 1.0 mg/dL (0.2-1.0) 05/29/19 21:30 Ur Leukocyte Esterase Negative (NEGATIVE) 05/29/19 21:30 RPR Titer Nonreactive (NONREACTIVE) 05/30/19 07:10 Pertinent Admission Physical Exam Findings: Alcohol dependence, opioid dependence, nicotine dependence, - Medication Discharge Medications: Ambulatory Orders Nortriptyline HCl 75 mg PO HS 08/21/14 Darunavir Ethanolate [Prezista -] 800 mg PO DAILY #30 tablet 08/25/14 Dolutegravir Sodium [Tivicay] 50 mg PO DAILY #30 tablet 08/25/14 Emtricitabine/Tenofovir [Truvada -] 1 tab PO DAILY #30 tablet 08/25/14 Ritonavir [Norvir -] 100 mg PO DAILY #30 08/25/14 Quetiapine Fumarate [Seroquel -] 200 mg PO HS #30 tablet 10/09/14 Gabapentin [Neurontin -] 300 mg PO TID 05/29/19 Tramadol HCl 100 mg PO BID 05/29/19 - Medication-Assisted Treatment (MAT) Medication-Assisted Treatment (MAT): No - Discharge Instructions Diet, activity, other medical instructions: Diet: Activity: Other medical instructions: - Diagnosis (1) Alcohol dependence Status: Chronic (2) Ambulates with cane Status: Chronic (3) Cocaine dependence Status: Chronic (4) Alcohol dependence Status: Chronic (5) Bronchitis Status: Chronic (6) Opioid dependence Status: Chronic (7) PTSD (post-traumatic stress disorder) Status: Acute (8) COPD (chronic obstructive pulmonary disease) Status: Chronic Qualifiers: COPD type: chronic bronchitis (9) Cannabis dependence Status: Chronic (10) HIV (human immunodeficiency virus infection) Status: Chronic Qualifiers: HIV symptom status: unspecified Qualified Code(s): B20 - Human immunodeficiency virus [HIV] disease (11) History of bipolar disorder Status: Chronic (12) History of depression Status: Chronic (13) History of schizoaffective disorder Status: Chronic (14) Neuropathy Status: Chronic (15) Sciatica Status: Chronic (16) Enlarged heart Status: Suspected (17) History of degenerative disc disease Status: Chronic - AMA Did Patient Leave Against Medical Advice: Yes
== END 2019-06-03 23:45 | disposition left against medical advice (07) | DRG 770 ==
LOC: YASAS 11:26 → Y3W 14:48
PROVIDERS: ADMIT Allergy & Immunology; ATTEND Allergy & Immunology
PROC: HZ42ZZZ Group Counseling for Substance Abuse Treatment, Cognitive-Behavioral (ICD-10-PCS; principal; 2019-05-29)
DX: F10.20 Alcohol dependence, uncomplicated (principal); F11.20 Opioid dependence, uncomplicated; F14.20 Cocaine dependence, uncomplicated; F12.20 Cannabis dependence, uncomplicated; F17.210 Nicotine dependence, cigarettes, uncomplicated; F43.10 Post-traumatic stress disorder, unspecified; I51.7 Cardiomegaly; G62.9 Polyneuropathy, unspecified; Z21 Asymptomatic human immunodeficiency virus [HIV] infection status; J44.9 Chronic obstructive pulmonary disease, unspecified; M54.30 Sciatica, unspecified side; M87.852 Other osteonecrosis, left femur; M87.851 Other osteonecrosis, right femur; Z99.3 Dependence on wheelchair; R63.4 Abnormal weight loss; Z91.5 Personal history of self-harm; Z59.0 Homelessness
CPT/HCPCS: 36415; 80053; 81003; 85027; 86593

== ENCOUNTER 2019-07-23 10:38 | Inpatient (IN) | payer OTHER ==
[2019-07-23 12:09] VITALS: BMI 20.7
--- NOTE | 2019-07-23 12:57 | HP ---
CIWA Score Nausea/Vomitin-No Nausea/No Vomiting Muscle Tremors: 3 Anxiety: 1-Mildly Anxious Agitation: 0-Normal Activity Paroxysmal Sweats: No Perspiration Orientation: 0-Oriented Tacttile Disturbances: 2-Mild Itch/Numbness/Burn Auditory Disturbances: 0-None Visual Disturbances: 0-None Headache: 0-None Present CIWA-Ar Total Score: 6 - Admission Criteria OASAS Guidelines: Admission for Medically Managed Detox: Requires at least one of the followin. CIWA greater than 12 2. Seizures within the past 24 hours 3. Delirium tremens within the past 24 hours 4. Hallucinations within the past 24 hours 5. Acute intervention needed for co occurring medical disorder 6. Acute intervention needed for co occurring psychiatric disorder 7. Severe withdrawal that cannot be handled at a lower level of care (continued vomiting, continued diarrhea, abnormal vital signs) requiring intravenous medication and/or fluids 8. Admitting History and Physical - Admission History of Present Illness: This is a 55 year old male with PMH of HIV, Bipolar disorder/depression. He presented to the clinic for detox from alcohol and cocaine use. He began drinking 36 years ago, drinks approximately 3 pints per day, last drink was last night (2 shots of vodka). No seizures from drinking, last blackout was last year. Last detox was months ago, denies recent Xanax use. He began using cocaine 36 years ago, uses 4-5 g daily, last used "a couple grams " yesterday. Only smokes, no snorting or IV use in the past. Smokes 2ppd for the past 36 years He was diagnosed with HIV in 1994, currently on medication, follows up at [facility]. Last CD4 count was around 180s, viral load unknown. Was diagnosed with Depression/BiPolar 6,7 years ago, Currently on Zoloft, Trazodone. ROS: - Fatigue - Difficulty urinating - Pruritis PMH: HIV, depression, bipolar disorder, avascular necrosis of the hip over the past year PSH: Due for hip replacement Social: Lives by himself, unemployed Physical exam: - AOx3 - Lungs: Clear B/L - CVS: RRR, 3/6 systolic murmur on RSB - GI: Soft, ND, NT - Extremities: No edema, pulses intact - PIG HANDLER: Motor 4/5 in Rt LE, 5/5 elsewhere, sensations intact everywhere else Plan: - Meets admission criteria for detox due to co-morbid medical and psychiatric diagnosis, high risk of relapse. - Resume home meds for depression/HIV - PPD for TB - Psych consult for hx of bipolar disorder/depression - Past Medical History Infectious Disease: Yes: HIV (since 1994) Psych: Yes: Anxiety, Bipolar, Depression Musculoskeletal: Yes: Osteoarthritis, Other (left knee) - Smoking History Smoking history: Current every day smoker Have you smoked in the past 12 months: Yes Aproximately how many cigarettes per day: 40 - Alcohol/Substance Use Hx Alcohol Use: Yes History of Substance Use: reports: Cocaine, Heroin - Social History ADL: Support Services Occupation: on disability History of Recent Travel: No Admission ROS [facility] Allergies/Adverse Reactions: Allergies Allergy/AdvReac Type Severity Reaction Status Date / Time No Known Allergies Allergy Verified 07/23/19 12:00 Patient History - Patient Medical History Hx Anemia: No Hx Asthma: No Hx Chronic Obstructive Pulmonary Disease (COPD): No Hx Cancer: No Hx Cardiac Disorders: No Hx Congestive Heart Failure: No Hx Hypertension: No Hx Hypercholesterolemia: No Hx Pacemaker: No HX Cerebrovascular Accident: No Hx Seizures: No Hx Dementia: Yes Hx Diabetes: No Hx Gastrointestinal Disorders: No Hx Liver Disease: No Hx Genitourinary Disorders: No Hx Sexually Transmitted Disorders: No Hx Renal Disease (ESRD): No Hx Thyroid Disease: No Hx Human Immunodeficiency Virus (HIV): Yes (TRICAY, TRUVADA, NOVIR, PRIZISTA; Has Not Taken for approx. 1 Year.) Hx Hepatitis C: No (Unable to Recall When Last Tested.) Hx Depression: Yes Hx Suicide Attempt: No Hx Bipolar Disorder: Yes (TAKES MEDICATION.) Hx Schizophrenia: No - Patient Surgical History Past Surgical History: No Hx Neurologic Surgery: No Hx Cataract Extraction: No Hx Cardiac Surgery: No Hx Lung Surgery: No Hx Breast Surgery: No Hx Breast Biopsy: No Hx Abdominal Surgery: No Hx Appendectomy: No Hx Cholecystectomy: No Hx Genitourinary Surgery: No Hx Section: No Hx Orthopedic Surgery: No Other Surgical History: DENIES. Anesthesia Reaction: No - PPD History Previous Implant?: Yes Documented Results: Negative w/proof Implanted On Prior [facility] Admission?: Yes Date: 07/11/18 Results: Negative - Smoking Cessation Smoking history: Current every day smoker Have you smoked in the past 12 months: Yes Aproximately how many cigarettes per day: 40 Cigars Per Day: 0 Hx Chewing Tobacco Use: No Initiated information on smoking cessation: Yes 'Breaking Loose' booklet given: 07/23/19 - Substances abused Cocaine Substance route: Smoking Frequency: Daily Amount used: 3 grams Age of first use: 19 Date of last use: 07/22/19 Alcohol Substance route: Oral Frequency: Daily Amount used: 2 pints Age of first use: 13 Date of last use: 07/22/19 Admission Physical Exam BHS - Vital Signs Vital Signs: Vital Signs - 24 hr 07/23/19 12:03 Temperature 98.1 F Pulse Rate 77 Respiratory 18 Rate Blood Pressure 128/68 Breathalyzer - Breathalyzer Breathalyzer: 0 Urine Drug Screen - Test Device Lot number: [id number] Expiration date: 05/04/21 - Control Is test valid?: Yes - Results Drug screen NEGATIVE: No Urine drug screen results: AMBROSE-Cocaine, BZO-Benzodiazepines Inpatient Rehab Admission - Rehab Decision to Admit Inpatient rehab admission?: No
[2019-07-23] MEDS ORDERED: MAGNESIUM CITRATE 300 ML BOTTLE PO PRN (13:10)
[2019-07-23] MEDS ORDERED: MAG HYDROX/AL HYDROX/SIMETH 30 ML UNIT-DOSE CUP PO PRN (13:10)
[2019-07-23] MEDS ORDERED: MENTHOL/PHENOL 1 EACH UD MM PRN (13:10)
[2019-07-23] MEDS ORDERED: MELATONIN 5 MG TABLETS PO PRN (13:10)
[2019-07-23] MEDS ORDERED: ACETAMINOPHEN 325 MG TABLET (FP) PO PRN (13:10)
[2019-07-23] MEDS ORDERED: hydrOXYzine PAMOATE 25 MG CAPSULE (FP) PO PRN (13:10)
[2019-07-23] MEDS ORDERED: BISMUTH SUBSALICYLATE 524 MG/30 ML UD PO PRN (13:10)
[2019-07-23] MEDS ORDERED: MAGNESIUM HYDROX 2400MG/30ML ORAL SUSPENSION 30 ML CUP PO PRN (13:10)
[2019-07-23] MEDS ORDERED: chlordiazePOXIDE HCL 25 MG CAPSULE PO PRN (13:10)
[2019-07-23] MEDS ORDERED: NICOTINE POLACRILEX 4 MG GUM BUC PRN (13:10)
--- NOTE | 2019-07-23 13:15 | BHS.RME ---
Substance Use & Tx History - Substance Use History Alcohol Substance amount: 3 pints vodka Frequency of use: Daily Substance route: Oral Date of Last Use: 07/22/19 (10 pm and 2 shots at 3am today) Nicotine Substance amount: 1 pack Frequency of use: Daily Date of Last Use: 07/23/19 Cocaine (Crack) Substance amount: 4-5 grams daily Frequency of use: Daily Substance route: Smoking Date of Last Use: 07/22/19 Physical/Psych/Mental Status - Behavior General Behavior: Increased activity (restlessness, agitation) Eye Contact: Normal - Cooperativeness Cooperativeness: Cooperative - Thinking Thought Processes: Tight, Logical, Goal Directed - Physical Health Problems Is patient presently having any pain?: No Does patient presently have any injuries (include location): No Does patient currently have a fever: No Is patient : No CIWA Nausea/Vomitin-No Nausea/No Vomiting Muscle Tremors: 3 Anxiety: 1-Mildly Anxious Agitation: 0-Normal Activity Paroxysmal Sweats: No Perspiration Orientation: 0-Oriented Tacttile Disturbances: 2-Mild Itch/Numbness/Burn Auditory Disturbances: 0-None Visual Disturbances: 0-None Headache: 0-None Present CIWA-Ar Total Score: 6
[2019-07-23] MEDS: chlordiazePOXIDE HCL 25 MG CAPSULE PO SCH ×2 (17:54→23:17)
[2019-07-23] MEDS ORDERED: diphenhydrAMINE HCL 25 MG CAPSULE (FP) PO PRN (18:14)
[2019-07-23] MEDS ORDERED: CALAMINE 8% TOPICAL LOTION 177 ML BOTTLE TP PRN (18:15)
--- NOTE | 2019-07-23 18:21 | PN ---
Progress Note (short form) - Note Progress Note: Was called to see patient because of new rash. Pt complains of itching rash consisting of little bumps all over his body. Pt states it started 2 days ago. Denies throat closing/tingling or difficulty breathing. No other complaints. Pt unable to identify any precipitating factor. States he is not aware of any new exposure, but suspects his clothing may be the cause. Denies new food or cream. On exam, hives of varying size present on b/l UE and torso. Per nursing staff, no other patients have complained of rash or itching. Advised patient to pay close attention to exposures. Will give benadryl and skin cream.
[2019-07-23] MEDS: LORATADINE 10 MG TABLET PO SCH (19:05)
[2019-07-23] MEDS: THIAMINE HCL 100 MG TABLET (FP) PO SCH (23:17)
[2019-07-24] MEDS: chlordiazePOXIDE HCL 25 MG CAPSULE PO SCH ×4 (05:19→22:03)
[2019-07-24] MEDS: METHOCARBAMOL 500 MG TABLET PO PRN (05:21)
[2019-07-24] MEDS: IBUPROFEN 400 MG TABLET (FP) PO PRN ×2 (05:21→17:30)
--- NOTE | 2019-07-24 08:11 | PN ---
Teaching Attending Note Name of Resident: Koffi Mitchell ATTENDING PHYSICIAN STATEMENT I saw and evaluated the patient. I reviewed the resident's note and discussed the case with the resident. I agree with the resident's findings and plan as documented. SUBJECTIVE: OBJECTIVE: ASSESSMENT AND PLAN:
[2019-07-24] MEDS: LORATADINE 10 MG TABLET PO SCH (10:10)
[2019-07-24] MEDS: EMTRICITABINE/TENOFOV ALAFENAM (DESCOVY) TABLET PO SCH (10:11)
[2019-07-24] MEDS: DOLUTEGRAVIR SODIUM 50 MG TABLET (NON-FORMULARY) PO SCH (10:11)
[2019-07-24] MEDS: PRENATAL VITAMINS W/ FOLIC ACID TABLET (FP) PO SCH (10:11)
[2019-07-24] MEDS: DARUNAVIR ETHANOLATE 800 MG TAB PO SCH (10:11)
[2019-07-24] MEDS: RITONAVIR 100 MG TABLET PO SCH (10:25)
[2019-07-24 11:57] LABS: HEMATOCRIT 39.9 % (35.4-49); HEMOGLOBIN 13.3 GM/dL (11.7-16.9); MCH 32.9 pg (25.7-33.7); MCHC 33.4 g/dl (32.0-35.9); MEAN CELL VOLUME 98.5 fl (80-96); MEAN PLT VOLUME 9.7 fl (7.5-11.1); PLATELET COUNT 164 K/MM3 (134-434); RBC 4.05 M/mm3 (4.00-5.60); RDW 12.9 % (11.9-15.9)
[2019-07-24 12:12] LABS: ALBUMIN 3.9 g/dl (3.4-5.0); BILIRUBIN,TOTAL 0.4 mg/dL (0.2-1); BLOOD UREA NITROGEN 12.4 mg/dL (7-18); CALCIUM 8.6 mg/dL (8.5-10.1); CREATININE 1.2 mg/dL (0.55-1.3); POTASSIUM 3.8 mmol/L (3.5-5.1); TOT PROT 7.4 g/dl (6.4-8.2)
--- NOTE | 2019-07-24 12:47 | CONSULT ---
[facility] Psychiatric Consult - Data Date of interview: 07/24/19 Admission source: [facility] Identifying data: Readmission to [address] [place] [address] for this 55 y/o AA male self-referred for detoxification treatment. KAREN issues : cocaine, alcohol, cannabis/K2, nicotine. Patient is single without children, domiciled ([place] setting), unemployed and supported on [employer] funds. Substance Abuse History: Discussed in session with the patient. Refer to current [facility] report for details : Smoking history: Current every day smoker. Have you smoked in the past 12 months: Yes. Aproximately how many cigarettes per day: 40. Cigars Per Day: 0. Hx Chewing Tobacco Use: No. Initiated information on smoking cessation: Yes. 'Breaking Loose' booklet given: . - Substances abused. Cocaine. Substance route: Smoking. Frequency: Daily. Amount used: 3 grams. Age of first use: 19. Date of last use: . Alcohol. Substance route: Oral. Frequency: Daily. Amount used: 2 pints. Age of first use: 13. Date of last use: 07/22/19 Medical History: Medical profile is remarkable for avascular necrosis of left hip, spinal stenosis, chronic lumbar pain, degenerative disc disease, left hip pain, HIV infection since 1994 (on ART medications), sciatica, peripheral neuropathy, hypothyroidism and past treatment for syphillis. Psychiatric History: Patient presents with a history of multiple psychiatric hospitalizations ([facility], [facility], [facility], [facility], [facility]). Diagnosed with PTSD and Schizoaffective Disorder. Past history of treatment with risperdal, trazodone, trilafon, sertraline and cogentin (doses not recalled). Mr Terry states that he has been recently prescribed risperdal + zoloft + trazodone + nortriptyline. NOT taken. " I don't jacques my prescriptions after they discharge me from hospitals. I simply get back to crack." History of OPD care at [facility] mental health clinic in [facility]. No follow-up at this time. Non-adherence to psychotropic medications. Patient endorses a history of three suicide attempts ( overdoses with medications, self-mutilation and ingestion of bleach). Physical/Sexual Abuse/Trauma History: No reported history of sexual abuse. Mr Terry admits to a history of 30 years of incarceration (armed robbery + homicide). Released in March 2017. Currently on parole. Additional Comment: Urine drug screen results: AMBROSE-Cocaine, BZO- Benzodiazepines. Noted. Mental Status Exam - Mental Status Exam Alert and Oriented to: Time, Place, Person Cognitive Function: Good Patient Appearance: Well Groomed (moving around in a wheelchair) Mood: Withdrawn, Anxious, Hopeful Affect: Mood Congruent, Constricted Patient Behavior: Fatigued, Uncooperative (marginally cooperative), Guarded Speech Pattern: Clear Voice Loudness: Normal Thought Process: Goal Oriented Thought Disorder: Not Present Hallucinations: Denies Suicidal Ideation: Denies Homicidal Ideation: Denies Insight/Judgement: Poor Sleep: Poorly, Difficulty falling asleep Appetite: Good Gait/Station: Other (moves in a wheelchair) Psychiatric Findings - Problem List ([place] 1, 2,3) (1) Alcohol dependence with uncomplicated withdrawal Current Visit: Yes Status: Acute (2) Cocaine dependence Current Visit: Yes Status: Chronic (3) Cocaine dependence Current Visit: Yes Status: Chronic (4) Nicotine dependence Current Visit: Yes Status: Chronic Qualifiers: Nicotine product type: cigarettes Substance use status: in withdrawal Qualified Code(s): F17.213 - Nicotine dependence, cigarettes, with withdrawal (5) Substance induced mood disorder Current Visit: Yes Status: Chronic (6) History of schizoaffective disorder Current Visit: Yes Status: Chronic (7) Insomnia Current Visit: Yes Status: Chronic (8) Non-compliant behavior Current Visit: Yes Status: Chronic Comment: With psychiatric OPD care. - Initial Treatment Plan Initial Treatment Plan: Records ([facility]) revisited. No pharmacy to contact for verification of medications. Patient reports that he uses " whatever pharmacy near where I live ". Mr Terry does request to resume treatment with risperdal + zoloft and " something " for insomnia. Ordered, at patient's request : risperdal 1 mg po bid + zoloft 50 mg po daily. Side effects/benefits discussed with the patient. Agrees with this plan of care. Declines seroquel (because of sedation). Insomnia is addressed with melatonin at bedtime. Observation.
[2019-07-24] MEDS ORDERED: ALBUTEROL SO4 HFA INHALER IH PRN (13:22)
[2019-07-24] MEDS ORDERED: ALBUTEROL SO4 0.083% IH SOL 2.5 MG/3 ML VIAL.NEB. NEB PRN (13:22)
--- NOTE | 2019-07-24 13:30 | PN ---
S CIWA - CIWA Score Nausea/Vomitin-Mild Nausea/No Vomiting Muscle Tremors: 3 Anxiety: 3 Agitation: 2 Paroxysmal Sweats: 2 Orientation: 0-Oriented Tacttile Disturbances: 1-Very Mild Itch/Numbness Auditory Disturbances: 0-None Visual Disturbances: 0-None Headache: 0-None Present CIWA-Ar Total Score: 12 BHS Progress Note (SOAP) Subjective: 55 years old male admitted on 07/23/19 for alcohol withdrawal sx management treating with librium detox regiment had systemic skin rash reaction yesterday denies trouble breathing today history of asthma and copd begin ventolin and nebulizer Objective: 07/24/19 13:29 Vital Signs Temperature 97.7 F 07/24/19 08:39 Pulse Rate 68 07/24/19 08:39 Respiratory Rate 18 07/24/19 08:39 Blood Pressure 112/68 07/24/19 08:39 O2 Sat by Pulse Oximetry (%) Laboratory Last Values WBC 3.0 K/mm3 (4.0-10.0) L 07/24/19 07:35 RBC 4.05 M/mm3 (4.00-5.60) 07/24/19 07:35 Hgb 13.3 GM/dL (11.7-16.9) 07/24/19 07:35 Hct 39.9 % (35.4-49) 07/24/19 07:35 MCV 98.5 fl (80-96) H 07/24/19 07:35 MCH 32.9 pg (25.7-33.7) 07/24/19 07:35 MCHC 33.4 g/dl (32.0-35.9) 07/24/19 07:35 RDW 12.9 % (11.9-15.9) 07/24/19 07:35 Plt Count 164 K/MM3 (134-434) D 07/24/19 07:35 MPV 9.7 fl (7.5-11.1) 07/24/19 07:35 Sodium 141 mmol/L (136-145) 07/24/19 07:35 Potassium 3.8 mmol/L (3.5-5.1) 07/24/19 07:35 Chloride 107 mmol/L (98-107) 07/24/19 07:35 Carbon Dioxide 27 mmol/L (21-32) 07/24/19 07:35 Anion Gap 7 MMOL/L (8-16) L 07/24/19 07:35 BUN 12.4 mg/dL (7-18) 07/24/19 07:35 Creatinine 1.2 mg/dL (0.55-1.3) 07/24/19 07:35 Est GFR (CKD-EPI)AfAm 77.88 07/24/19 07:35 Est GFR (CKD-EPI)NonAf 67.19 07/24/19 07:35 Random Glucose 111 mg/dL (74-106) H 07/24/19 07:35 Calcium 8.6 mg/dL (8.5-10.1) 07/24/19 07:35 Total Bilirubin 0.4 mg/dL (0.2-1) 07/24/19 07:35 AST 34 U/L (15-37) 07/24/19 07:35 ALT 29 U/L (13-61) 07/24/19 07:35 Alkaline Phosphatase 78 U/L (45-117) 07/24/19 07:35 Total Protein 7.4 g/dl (6.4-8.2) 07/24/19 07:35 Albumin 3.9 g/dl (3.4-5.0) 07/24/19 07:35 lab noted 07/24/19 13:31 long history of hiv Assessment: 07/24/19 13:31 alcohol withdrawal Plan: librium regiment
[2019-07-24] MEDS: AMOXICILLIN 500 MG CAPSULE (FP) PO SCH ×2 (15:30→22:01)
[2019-07-24] MEDS: ACETAMINOPHEN 325 MG TABLET (FP) PO PRN (15:30)
[2019-07-24] MEDS: risperiDONE 1 MG TABLET PO SCH (22:01)
[2019-07-24] MEDS: THIAMINE HCL 100 MG TABLET (FP) PO SCH (22:02)
[2019-07-25] MEDS: IBUPROFEN 400 MG TABLET (FP) PO PRN ×2 (01:40→09:51)
[2019-07-25] MEDS: chlordiazePOXIDE HCL 25 MG CAPSULE PO SCH ×4 (05:33→22:22)
[2019-07-25] MEDS: RITONAVIR 100 MG TABLET PO SCH (07:18)
[2019-07-25] MEDS: DARUNAVIR ETHANOLATE 800 MG TAB PO SCH (07:18)
[2019-07-25] MEDS: DOLUTEGRAVIR SODIUM 50 MG TABLET (NON-FORMULARY) PO SCH (07:18)
[2019-07-25] MEDS: EMTRICITABINE/TENOFOV ALAFENAM (DESCOVY) TABLET PO SCH (07:18)
[2019-07-25] MEDS: SERTRALINE HCL 50 MG TABLET (FP) PO SCH (09:51)
[2019-07-25] MEDS: risperiDONE 1 MG TABLET PO SCH ×2 (09:51→22:22)
[2019-07-25] MEDS: LORATADINE 10 MG TABLET PO SCH (09:51)
[2019-07-25] MEDS: AMOXICILLIN 500 MG CAPSULE (FP) PO SCH ×2 (09:51→22:22)
[2019-07-25] MEDS: PRENATAL VITAMINS W/ FOLIC ACID TABLET (FP) PO SCH (09:53)
--- NOTE | 2019-07-25 12:48 | PN ---
S CIWA - CIWA Score Nausea/Vomitin-No Nausea/No Vomiting Muscle Tremors: 1-None Visible, but [place] Anxiety: 1-Mildly Anxious Agitation: 0-Normal Activity Paroxysmal Sweats: 1-Minimal Palms Moist Orientation: 0-Oriented Tacttile Disturbances: 0-None Auditory Disturbances: 0-None Visual Disturbances: 1-Very Mild Sensitivity Headache: 3-Moderate CIWA-Ar Total Score: 7 BHS Progress Note (SOAP) Subjective: 55 years old male admitted on 07/23/19 for alcohol withdrawal sx management treating with librium detox regiment reports chronic back pain x 1 year requests oxycodin for pain states that "my wheelchair broken" requests to take current wheelchair home as ambulating aid that he can not walk with his own cane due to "too painful" patient wants to go to [facility] for chemical dependent rehab and agrees to explore pain clinic in [facility] Objective: 07/25/19 12:53 Vital Signs Temperature 99.2 F 07/25/19 08:30 Pulse Rate 79 07/25/19 08:30 Respiratory Rate 18 07/25/19 08:30 Blood Pressure 120/64 07/25/19 08:30 O2 Sat by Pulse Oximetry (%) Laboratory Last Values WBC 3.0 K/mm3 (4.0-10.0) L 07/24/19 07:35 RBC 4.05 M/mm3 (4.00-5.60) 07/24/19 07:35 Hgb 13.3 GM/dL (11.7-16.9) 07/24/19 07:35 Hct 39.9 % (35.4-49) 07/24/19 07:35 MCV 98.5 fl (80-96) H 07/24/19 07:35 MCH 32.9 pg (25.7-33.7) 07/24/19 07:35 MCHC 33.4 g/dl (32.0-35.9) 07/24/19 07:35 RDW 12.9 % (11.9-15.9) 07/24/19 07:35 Plt Count 164 K/MM3 (134-434) D 07/24/19 07:35 MPV 9.7 fl (7.5-11.1) 07/24/19 07:35 Sodium 141 mmol/L (136-145) 07/24/19 07:35 Potassium 3.8 mmol/L (3.5-5.1) 07/24/19 07:35 Chloride 107 mmol/L (98-107) 07/24/19 07:35 Carbon Dioxide 27 mmol/L (21-32) 07/24/19 07:35 Anion Gap 7 MMOL/L (8-16) L 07/24/19 07:35 BUN 12.4 mg/dL (7-18) 07/24/19 07:35 Creatinine 1.2 mg/dL (0.55-1.3) 07/24/19 07:35 Est GFR (CKD-EPI)AfAm 77.88 07/24/19 07:35 Est GFR (CKD-EPI)NonAf 67.19 07/24/19 07:35 Random Glucose 111 mg/dL (74-106) H 07/24/19 07:35 Calcium 8.6 mg/dL (8.5-10.1) 07/24/19 07:35 Total Bilirubin 0.4 mg/dL (0.2-1) 07/24/19 07:35 AST 34 U/L (15-37) 07/24/19 07:35 ALT 29 U/L (13-61) 07/24/19 07:35 Alkaline Phosphatase 78 U/L (45-117) 07/24/19 07:35 Total Protein 7.4 g/dl (6.4-8.2) 07/24/19 07:35 Albumin 3.9 g/dl (3.4-5.0) 07/24/19 07:35 RPR Titer Nonreactive (NONREACTIVE) 07/24/19 07:35 lab noted Assessment: 07/25/19 12:53 alcohol withdrawal Plan: librium regiment
[2019-07-25] MEDS: THIAMINE HCL 100 MG TABLET (FP) PO SCH (22:22)
[2019-07-25] MEDS: METHOCARBAMOL 500 MG TABLET PO PRN (22:57)
[2019-07-25] MEDS: ACETAMINOPHEN 325 MG TABLET (FP) PO PRN (22:57)
[2019-07-26] MEDS ORDERED: chlordiazePOXIDE HCL 10 MG CAPSULE PO PRN
[2019-07-26] MEDS: chlordiazePOXIDE HCL 10 MG CAPSULE PO SCH ×4 (06:07→22:05)
[2019-07-26] MEDS: IBUPROFEN 400 MG TABLET (FP) PO PRN (06:13)
[2019-07-26] MEDS: DARUNAVIR ETHANOLATE 800 MG TAB PO SCH (07:10)
[2019-07-26] MEDS: RITONAVIR 100 MG TABLET PO SCH (07:11)
[2019-07-26] MEDS: EMTRICITABINE/TENOFOV ALAFENAM (DESCOVY) TABLET PO SCH (07:11)
[2019-07-26] MEDS: DOLUTEGRAVIR SODIUM 50 MG TABLET (NON-FORMULARY) PO SCH (07:13)
[2019-07-26] MEDS: PRENATAL VITAMINS W/ FOLIC ACID TABLET (FP) PO SCH (10:29)
[2019-07-26] MEDS: SERTRALINE HCL 50 MG TABLET (FP) PO SCH (10:29)
[2019-07-26] MEDS: risperiDONE 1 MG TABLET PO SCH ×2 (10:29→22:05)
[2019-07-26] MEDS: LORATADINE 10 MG TABLET PO SCH (10:29)
[2019-07-26] MEDS: AMOXICILLIN 500 MG CAPSULE (FP) PO SCH ×2 (10:30→22:05)
--- NOTE | 2019-07-26 11:03 | PN ---
[facility] CIWA - CIWA Score Nausea/Vomitin-Mild Nausea/No Vomiting Muscle Tremors: 1-None Visible, but [place] Anxiety: 2 Agitation: 2 Paroxysmal Sweats: No Perspiration Orientation: 0-Oriented Tacttile Disturbances: 1-Very Mild Itch/Numbness Auditory Disturbances: 0-None Visual Disturbances: 0-None Headache: 0-None Present CIWA-Ar Total Score: 7 BHS Progress Note (SOAP) Subjective: alert,irritable,interrupted sleep,pain in the body Objective: 07/26/19 11:02 Vital Signs Temperature 97.1 F L 07/26/19 08:41 Pulse Rate 70 07/26/19 08:41 Respiratory Rate 18 07/26/19 08:41 Blood Pressure 132/72 07/26/19 08:41 O2 Sat by Pulse Oximetry (%) Assessment: 07/26/19 11:02 withdrawal symptom Plan: continue detox librium regimen
[2019-07-26] MEDS: THIAMINE HCL 100 MG TABLET (FP) PO SCH (22:06)
[2019-07-27] MEDS: chlordiazePOXIDE HCL 10 MG CAPSULE PO SCH ×2 (07:10→18:00)
[2019-07-27] MEDS: DARUNAVIR ETHANOLATE 800 MG TAB PO SCH (07:55)
[2019-07-27] MEDS: DOLUTEGRAVIR SODIUM 50 MG TABLET (NON-FORMULARY) PO SCH (07:56)
[2019-07-27] MEDS: RITONAVIR 100 MG TABLET PO SCH (07:56)
[2019-07-27] MEDS: EMTRICITABINE/TENOFOV ALAFENAM (DESCOVY) TABLET PO SCH (07:56)
[2019-07-27] MEDS: IBUPROFEN 400 MG TABLET (FP) PO PRN ×2 (08:50→22:21)
[2019-07-27] MEDS: ACETAMINOPHEN 325 MG TABLET (FP) PO PRN ×2 (08:51→22:20)
[2019-07-27] MEDS: PRENATAL VITAMINS W/ FOLIC ACID TABLET (FP) PO SCH (10:18)
[2019-07-27] MEDS: AMOXICILLIN 500 MG CAPSULE (FP) PO SCH ×2 (10:19→22:18)
[2019-07-27] MEDS: LORATADINE 10 MG TABLET PO SCH (10:20)
[2019-07-27] MEDS: risperiDONE 1 MG TABLET PO SCH ×2 (10:20→23:21)
[2019-07-27] MEDS: SERTRALINE HCL 50 MG TABLET (FP) PO SCH (10:20)
--- NOTE | 2019-07-27 11:23 | PN ---
S CIWA - CIWA Score Nausea/Vomitin-No Nausea/No Vomiting Muscle Tremors: None Anxiety: 1-Mildly Anxious Agitation: 0-Normal Activity Paroxysmal Sweats: 1-Minimal Palms Moist Orientation: 0-Oriented Tacttile Disturbances: 0-None Auditory Disturbances: 0-None Visual Disturbances: 0-None Headache: 0-None Present CIWA-Ar Total Score: 2 BHS Progress Note (SOAP) Subjective: c/o mild withdrawal symptoms. Objective: 07/27/19 11:21 Vital Signs 07/27/19 07/27/19 07/27/19 03:30 07:46 08:40 Temperature 98.2 F 98.6 F Pulse Rate 67 75 Respiratory 18 16 18 Rate Blood Pressure 135/80 122/71 Laboratory Last Values WBC 3.0 K/mm3 (4.0-10.0) L 07/24/19 07:35 RBC 4.05 M/mm3 (4.00-5.60) 07/24/19 07:35 Hgb 13.3 GM/dL (11.7-16.9) 07/24/19 07:35 Hct 39.9 % (35.4-49) 07/24/19 07:35 MCV 98.5 fl (80-96) H 07/24/19 07:35 MCH 32.9 pg (25.7-33.7) 07/24/19 07:35 MCHC 33.4 g/dl (32.0-35.9) 07/24/19 07:35 RDW 12.9 % (11.9-15.9) 07/24/19 07:35 Plt Count 164 K/MM3 (134-434) D 07/24/19 07:35 MPV 9.7 fl (7.5-11.1) 07/24/19 07:35 Sodium 141 mmol/L (136-145) 07/24/19 07:35 Potassium 3.8 mmol/L (3.5-5.1) 07/24/19 07:35 Chloride 107 mmol/L (98-107) 07/24/19 07:35 Carbon Dioxide 27 mmol/L (21-32) 07/24/19 07:35 Anion Gap 7 MMOL/L (8-16) L 07/24/19 07:35 BUN 12.4 mg/dL (7-18) 07/24/19 07:35 Creatinine 1.2 mg/dL (0.55-1.3) 07/24/19 07:35 Est GFR (CKD-EPI)AfAm 77.88 07/24/19 07:35 Est GFR (CKD-EPI)NonAf 67.19 07/24/19 07:35 Random Glucose 111 mg/dL (74-106) H 07/24/19 07:35 Calcium 8.6 mg/dL (8.5-10.1) 07/24/19 07:35 Total Bilirubin 0.4 mg/dL (0.2-1) 07/24/19 07:35 AST 34 U/L (15-37) 07/24/19 07:35 ALT 29 U/L (13-61) 07/24/19 07:35 Alkaline Phosphatase 78 U/L (45-117) 07/24/19 07:35 Total Protein 7.4 g/dl (6.4-8.2) 07/24/19 07:35 Albumin 3.9 g/dl (3.4-5.0) 07/24/19 07:35 RPR Titer Nonreactive (NONREACTIVE) 07/24/19 07:35 Labs noted. Assessment: 07/27/19 11:21 AOX3, in no acute respiratory distress. Full ROM, ambulating in the unit. Mild Withdrawal symptoms. For D/C tomorrow. Plan: continue detox. D/C in AM.
[2019-07-27] MEDS: THIAMINE HCL 100 MG TABLET (FP) PO SCH (22:19)
[2019-07-27] MEDS: METHOCARBAMOL 500 MG TABLET PO PRN (22:19)
[2019-07-28] MEDS ORDERED: chlordiazePOXIDE HCL 10 MG CAPSULE PO ONE (05:00)
[2019-07-28] MEDS: IBUPROFEN 400 MG TABLET (FP) PO PRN (06:12)
[2019-07-28] MEDS: ACETAMINOPHEN 325 MG TABLET (FP) PO PRN (06:13)
[2019-07-28] MEDS: METHOCARBAMOL 500 MG TABLET PO PRN (06:15)
[2019-07-28 09:09] VITALS: BP 119/80; PULSE 86; TEMP 98.1
[2019-07-28] MEDS: DOLUTEGRAVIR SODIUM 50 MG TABLET (NON-FORMULARY) PO SCH (09:11)
[2019-07-28] MEDS: EMTRICITABINE/TENOFOV ALAFENAM (DESCOVY) TABLET PO SCH (09:11)
[2019-07-28] MEDS: RITONAVIR 100 MG TABLET PO SCH (09:12)
[2019-07-28] MEDS: DARUNAVIR ETHANOLATE 800 MG TAB PO SCH (09:13)
[2019-07-28] MEDS: LORATADINE 10 MG TABLET PO SCH (09:13)
[2019-07-28] MEDS: AMOXICILLIN 500 MG CAPSULE (FP) PO SCH (09:13)
[2019-07-28] MEDS: PRENATAL VITAMINS W/ FOLIC ACID TABLET (FP) PO SCH (09:14)
[2019-07-28] MEDS: SERTRALINE HCL 50 MG TABLET (FP) PO SCH (09:14)
[2019-07-28] MEDS: risperiDONE 1 MG TABLET PO SCH (09:14)
--- NOTE | 2019-07-28 10:11 | DS ---
[facility] Detox Discharge Summary Admission Date: 07/23/19 Discharge Date: 07/28/19 - History Present History: Alcohol Dependence Additional Comments: 55 years old male admitted on 07/23/19 for alcohol withdrawal sx management treated with librium detox regiment Mr Terry has completed the librium regiment and is tolerated well alert oriented x 3 seen by psychiatrist resume risperidal and zoloft respiratory clear lungs bilaterally on auscultation abdomen soft no rebound tenderness skin warm and dry Pertinent Past History: time for discharge 46 minutes patient requests a month HIV medication ARV prescription health teaching on consistency of ARV monitoring and administration are the most effective method of treatment for HIV encourage the patient returning to primary infectious disease provider for follow up - Physical Exam Results Vital Signs: Vital Signs Temperature 98.1 F 07/28/19 08:40 Pulse Rate 86 07/28/19 08:40 Respiratory Rate 18 07/28/19 08:40 Blood Pressure 119/80 07/28/19 08:40 O2 Sat by Pulse Oximetry (%) Pertinent Admission Physical Exam Findings: alcohol withdrawal Laboratory Last Values WBC 3.0 K/mm3 (4.0-10.0) L 07/24/19 07:35 RBC 4.05 M/mm3 (4.00-5.60) 07/24/19 07:35 Hgb 13.3 GM/dL (11.7-16.9) 07/24/19 07:35 Hct 39.9 % (35.4-49) 07/24/19 07:35 MCV 98.5 fl (80-96) H 07/24/19 07:35 MCH 32.9 pg (25.7-33.7) 07/24/19 07:35 MCHC 33.4 g/dl (32.0-35.9) 07/24/19 07:35 RDW 12.9 % (11.9-15.9) 07/24/19 07:35 Plt Count 164 K/MM3 (134-434) D 07/24/19 07:35 MPV 9.7 fl (7.5-11.1) 07/24/19 07:35 Sodium 141 mmol/L (136-145) 07/24/19 07:35 Potassium 3.8 mmol/L (3.5-5.1) 07/24/19 07:35 Chloride 107 mmol/L (98-107) 07/24/19 07:35 Carbon Dioxide 27 mmol/L (21-32) 07/24/19 07:35 Anion Gap 7 MMOL/L (8-16) L 07/24/19 07:35 BUN 12.4 mg/dL (7-18) 07/24/19 07:35 Creatinine 1.2 mg/dL (0.55-1.3) 07/24/19 07:35 Est GFR (CKD-EPI)AfAm 77.88 07/24/19 07:35 Est GFR (CKD-EPI)NonAf 67.19 07/24/19 07:35 Random Glucose 111 mg/dL (74-106) H 07/24/19 07:35 Calcium 8.6 mg/dL (8.5-10.1) 07/24/19 07:35 Total Bilirubin 0.4 mg/dL (0.2-1) 07/24/19 07:35 AST 34 U/L (15-37) 07/24/19 07:35 ALT 29 U/L (13-61) 07/24/19 07:35 Alkaline Phosphatase 78 U/L (45-117) 07/24/19 07:35 Total Protein 7.4 g/dl (6.4-8.2) 07/24/19 07:35 Albumin 3.9 g/dl (3.4-5.0) 07/24/19 07:35 Urine Color Cancelled 07/24/19 14:15 Urine Appearance Cancelled 07/24/19 14:15 Urine pH Cancelled 07/24/19 14:15 Ur Specific [place] Cancelled 07/24/19 14:15 Urine Protein Cancelled 07/24/19 14:15 Urine Glucose (UA) Cancelled 07/24/19 14:15 Urine Ketones Cancelled 07/24/19 14:15 Urine Blood Cancelled 07/24/19 14:15 Urine Nitrite Cancelled 07/24/19 14:15 Urine Bilirubin Cancelled 07/24/19 14:15 Urine Urobilinogen Cancelled 07/24/19 14:15 Ur Leukocyte Esterase Cancelled 07/24/19 14:15 Urine WBC (Auto) Cancelled 07/24/19 14:15 Urine RBC (Auto) Cancelled 07/24/19 14:15 Urine Casts (Auto) Cancelled 07/24/19 14:15 U Pathogenic Cast Auto Cancelled 07/24/19 14:15 U Epithel Cells (Auto) Cancelled 07/24/19 14:15 U Sm Round Cell (Auto) Cancelled 07/24/19 14:15 Urine Crystals (Auto) Cancelled 07/24/19 14:15 Urine Bacteria (Auto) Cancelled 07/24/19 14:15 Urine Yeast (Auto) Cancelled 07/24/19 14:15 RPR Titer Nonreactive (NONREACTIVE) 07/24/19 07:35 lab noted - Treatment Hospital Course: Detox Protocol Followed, Detoxed Safely, Responded well, Discharged Condition Good, Rehab Referral Accepted Patient has Accepted a Rehab Referral to: [facility] chemical dependent rehab - Medication Discharge Medications: Ambulatory Orders Darunavir Ethanolate [Prezista -] 800 mg PO DAILY #30 tablet 08/25/14 Dolutegravir Sodium [Tivicay] 50 mg PO DAILY #30 tablet 08/25/14 Ritonavir [Norvir -] 100 mg PO DAILY #30 08/25/14 Emtricitabine/Tenofov Alafenam [Descovy 200-25 mg Tablet (Nf)] 1 each PO DAILY 07/23/19 Ibuprofen 800 mg PO Q6H PRN 07/23/19 - Diagnosis (1) Alcohol dependence with uncomplicated withdrawal Status: Acute (2) Walker as ambulation aid Status: Chronic (3) Ambulates with cane Status: Chronic (4) COPD (chronic obstructive pulmonary disease) Status: Chronic Qualifiers: COPD type: emphysema (5) HIV (human immunodeficiency virus infection) Status: Chronic Qualifiers: HIV symptom status: asymptomatic Qualified Code(s): Z21 - Asymptomatic human immunodeficiency virus [HIV] infection status (6) Nicotine dependence Status: Acute Qualifiers: Nicotine product type: cigarettes Substance use status: in withdrawal Qualified Code(s): F17.213 - Nicotine dependence, cigarettes, with withdrawal (7) Substance induced mood disorder Status: Chronic - AMA Did Patient Leave Against Medical Advice: No CIWA Score - CIWA Score Nausea/Vomitin-No Nausea/No Vomiting Muscle Tremors: None Anxiety: 1-Mildly Anxious Agitation: 0-Normal Activity Paroxysmal Sweats: No Perspiration Orientation: 0-Oriented Tacttile Disturbances: 0-None Auditory Disturbances: 0-None Visual Disturbances: 0-None Headache: 0-None Present CIWA-Ar Total Score: 1
== END 2019-07-28 09:16 | disposition home or self-care (01) | DRG 774 ==
LOC: EDBD → YASAS 10:38 → Y3N 13:09
PROVIDERS: ADMIT Allergy & Immunology; ATTEND Allergy & Immunology
PROC: HZ2ZZZZ Detoxification Services for Substance Abuse Treatment (ICD-10-PCS; principal; 2019-07-23)
DX: F10.230 Alcohol dependence with withdrawal, uncomplicated (principal); F14.20 Cocaine dependence, uncomplicated; F17.210 Nicotine dependence, cigarettes, uncomplicated; F19.24 Other psychoactive substance dependence with psychoactive substance-induced mood disorder; F25.9 Schizoaffective disorder, unspecified; F31.9 Bipolar disorder, unspecified; F43.10 Post-traumatic stress disorder, unspecified; F91.9 Conduct disorder, unspecified; Z21 Asymptomatic human immunodeficiency virus [HIV] infection status; J44.9 Chronic obstructive pulmonary disease, unspecified; G62.9 Polyneuropathy, unspecified; L50.9 Urticaria, unspecified; M54.5 Low back pain; M48.00 Spinal stenosis, site unspecified; M17.12 Unilateral primary osteoarthritis, left knee; E03.9 Hypothyroidism, unspecified; M87.852 Other osteonecrosis, left femur; Z87.39 Personal history of other diseases of the musculoskeletal system and connective tissue; Z86.19 Personal history of other infectious and parasitic diseases; Z99.89 Dependence on other enabling machines and devices
CPT/HCPCS: 36415; 80053; 81003; 85027; 86593; J2794

== ENCOUNTER 2019-12-14 11:18 | Inpatient (IN) | payer OTHER ==
--- NOTE | 2019-12-14 15:36 | BHS.RME ---
Substance Use & Tx History - Substance Use History Alcohol Substance amount: 2 pints Frequency of use: Daily Date of Last Use: 12/14/19 - Last Treatment Date of last treatment: 10/15/2019 Physical/Psych/Mental Status - Behavior General Behavior: Increased activity (restlessness, agitation) Eye Contact: Normal Other Behaviors: Mannerisms - Cooperativeness Cooperativeness: Cooperative - Thinking Thought Processes: Tight Thought content: Future oriented - Physical Health Problems Is patient presently having any pain?: Yes Does patient presently have any injuries (include location): No Does patient currently have a fever: No CIWA Nausea/Vomitin Muscle Tremors: 2 Anxiety: 2 Agitation: 2 Paroxysmal Sweats: 2 Orientation: 1-Uncertain about Date Tacttile Disturbances: 1-Very Mild Itch/Numbness Auditory Disturbances: 1-Very Mild Visual Disturbances: 1-Very Mild Sensitivity Headache: 1-Very Mild CIWA-Ar Total Score: 15
[2019-12-14 15:44] VITALS: BMI 19.8
--- NOTE | 2019-12-14 15:46 | HP ---
CIWA Score Nausea/Vomitin Muscle Tremors: 2 Anxiety: 2 Agitation: 2 Paroxysmal Sweats: 2 Orientation: 1-Uncertain about Date Tacttile Disturbances: 1-Very Mild Itch/Numbness Auditory Disturbances: 1-Very Mild Visual Disturbances: 1-Very Mild Sensitivity Headache: 1-Very Mild CIWA-Ar Total Score: 15 - Admission Criteria OASAS Guidelines: Admission for Medically Managed Detox: Requires at least one of the followin. CIWA greater than 12 2. Seizures within the past 24 hours 3. Delirium tremens within the past 24 hours 4. Hallucinations within the past 24 hours 5. Acute intervention needed for co occurring medical disorder 6. Acute intervention needed for co occurring psychiatric disorder 7. Severe withdrawal that cannot be handled at a lower level of care (continued vomiting, continued diarrhea, abnormal vital signs) requiring intravenous medication and/or fluids 8. Patient presents the following: CIWA greater than 12 Admission Criteria Met: Admission criteria met Admitting History and Physical - Past Medical History PHOTOGRAPHIC LABORATORY TECHNICIAN: Yes: Dementia Infectious Disease: Yes: HIV (since 1994) Psych: Yes: Anxiety, Bipolar, Depression Musculoskeletal: Yes: Osteoarthritis, Other (left knee) - Smoking History Smoking history: Current every day smoker Have you smoked in the past 12 months: Yes Aproximately how many cigarettes per day: 40 - Alcohol/Substance Use Hx Alcohol Use: Yes History of Substance Use: reports: Cocaine, Heroin - Social History ADL: Support Services Occupation: on disability History of Recent Travel: No Admission [facility] Chief Complaint: "I don't want to kill myself out there drinking" Allergies/Adverse Reactions: Allergies Allergy/AdvReac Type Severity Reaction Status Date / Time No Known Allergies Allergy Verified 12/14/19 15:45 History of Present Illness: 55 year old man presents for alcohol detox, patient presented intoxicated, took a nap and now is ready to go through admission process Exam Limitations: No Limitations - Ebola screening Have you traveled outside of the country in the last 21 days: No Have you had contact with anyone from an Ebola affected area: No Have you been sick,other than usual withdrawal symptoms: No Do you have a fever: No - Review of Systems Constitutional: Loss of Appetite, Changes in sleep EENT: reports: Blurred Vision (uses eye glasses) Respiratory: reports: Cough (chronic r/t cigarette smoking) Cardiac: reports: No Symptoms Reported GI: reports: Nausea, Poor Fluid Intake, Abdominal cramping : reports: No Symptoms Reported Musculoskeletal: reports: Back Pain, Joint Pain, Muscle Pain Integumentary: reports: Sweating Neuro: reports: Headache, Numbness, Tremors Endocrine: reports: No Symptoms Reported Hematology: reports: No Symptoms Reported Psychiatric: reports: Orientated x3, Depressed Patient History - Patient Medical History Hx Anemia: No Hx Asthma: No Hx Chronic Obstructive Pulmonary Disease (COPD): No Hx Cancer: No Hx Cardiac Disorders: No Hx Congestive Heart Failure: No Hx Hypertension: No Hx Hypercholesterolemia: No Hx Pacemaker: No HX Cerebrovascular Accident: No Hx Seizures: No Hx Dementia: Yes Hx Diabetes: No Hx Gastrointestinal Disorders: No Hx Liver Disease: No Hx Genitourinary Disorders: No Hx Sexually Transmitted Disorders: No Hx Renal Disease (ESRD): No Hx Thyroid Disease: No Hx Human Immunodeficiency Virus (HIV): Yes Hx Hepatitis C: No Hx Depression: Yes Hx Suicide Attempt: No Hx Bipolar Disorder: Yes Hx Schizophrenia: No - Patient Surgical History Past Surgical History: No - PPD History Previous Implant?: Yes Documented Results: Negative w/proof Implanted On Prior R Admission?: Yes Date: 07/25/19 Results: Negative PPD to be Administered?: No - Smoking Cessation Smoking history: Current every day smoker Have you smoked in the past 12 months: Yes Aproximately how many cigarettes per day: 40 Cigars Per Day: 0 Hx Chewing Tobacco Use: No Initiated information on smoking cessation: Yes 'Breaking Loose' booklet given: 12/14/19 - Substances abused Alcohol Substance route: Oral Frequency: Daily Amount used: VODKA- 2-5PTS Age of first use: 13 Date of last use: 12/14/19 Admission Physical Exam S - Physical General Appearance: Yes: No Apparent Distress, Anxious HEENTM: Yes: Normocephalic Respiratory: Yes: Chest Non-Tender, Lungs Clear, Normal Breath Sounds Neck: Yes: No masses,lesions,Nodules, Supple Breast: Yes: Breast Exam Deferred Cardiology: Yes: Regular Rhythm, Regular Rate Abdominal: Yes: Soft Genitourinary: Yes: Within Normal Limits Back: Yes: CVA Tenderness (R), Decreased Range of Motion Musculoskeletal: Yes: Back pain, Other (unsteady gait) Extremities: Yes: Tremors Neurological: Yes: Alert, Normal Mood/Affect, Normal Response, Numbness Integumentary: Yes: Cold Lymphatic: Yes: Within Normal Limits - Diagnostic (1) Alcohol dependence with uncomplicated withdrawal Current Visit: Yes Status: Acute (2) HIV (human immunodeficiency virus infection) Current Visit: Yes Status: Chronic Qualifiers: HIV symptom status: unspecified Qualified Code(s): B20 - Human imm unodeficiency virus [HIV] disease (3) Nicotine dependence Current Visit: Yes Status: Chronic Qualifiers: Nicotine product type: cigarettes Substance use status: uncomplicated Qualified Code(s): F17.210 - Nicotine dependence, cigarettes, uncomplicated (4) Sciatica Current Visit: Yes Status: Chronic Qualifiers: Laterality: bilateral Qualified Code(s): M54.31 - Sciatica, right side; M54.32 - Sciatica, left side (5) Avascular necrosis Current Visit: Yes Status: Chronic Cleared for Admission S - Detox or Rehab [facility] Level of Care: Medically Managed Detox Regimen/Protocol: Librium Claeared for Rehab Admission: No Breathalyzer - Breathalyzer Breathalyzer: 0.039 Urine Drug Screen - Test Device Lot number: [id number] Expiration date: 02/02/21 - Control Is test valid?: Yes - Results Drug screen NEGATIVE: No Urine drug screen results: AMBROSE-Cocaine Inpatient Rehab Admission - Rehab Decision to Admit Inpatient rehab admission?: No
[2019-12-14] MEDS ORDERED: IBUPROFEN 400 MG TABLET (FP) PO PRN (16:11)
[2019-12-14] MEDS ORDERED: MENTHOL/PHENOL 1 EACH UD MM PRN (16:11)
[2019-12-14] MEDS ORDERED: BISMUTH SUBSALICYLATE 524 MG/30 ML UD PO PRN (16:11)
[2019-12-14] MEDS ORDERED: NICOTINE POLACRILEX 2 MG GUM BUC PRN (16:11)
[2019-12-14] MEDS ORDERED: chlordiazePOXIDE HCL 10 MG CAPSULE PO PRN (16:11)
[2019-12-14] MEDS ORDERED: ACETAMINOPHEN 325 MG TABLET (FP) PO PRN ×2 (16:11)
[2019-12-14] MEDS ORDERED: MAG HYDROX/AL HYDROX/SIMETH 30 ML UNIT-DOSE CUP PO PRN (16:11)
[2019-12-14] MEDS ORDERED: ONDANSETRON *ODT* 4 MG TABLET SL ONE (16:11)
[2019-12-14] MEDS ORDERED: METHOCARBAMOL 500 MG TABLET PO PRN (16:11)
[2019-12-14] MEDS ORDERED: MAGNESIUM HYDROX 2400MG/30ML ORAL SUSPENSION 30 ML CUP PO PRN (16:11)
[2019-12-14] MEDS ORDERED: chlordiazePOXIDE HCL 25 MG CAPSULE PO ONE (16:11)
[2019-12-14] MEDS ORDERED: MAGNESIUM CITRATE 300 ML BOTTLE PO PRN (16:11)
[2019-12-14] MEDS ORDERED: GABAPENTIN 300 MG CAPSULE PO SCH (16:15)
[2019-12-14] MEDS: hydrOXYzine PAMOATE 25 MG CAPSULE (FP) PO SCH ×2 (17:18→22:09)
[2019-12-14] MEDS: chlordiazePOXIDE HCL 25 MG CAPSULE PO SCH (22:09)
[2019-12-14] MEDS: MELATONIN 5 MG TABLETS PO SCH (22:09)
[2019-12-14] MEDS: THIAMINE HCL 100 MG TABLET (FP) PO SCH (22:09)
[2019-12-14] MEDS: GABAPENTIN 300 MG CAPSULE PO SCH (22:09)
[2019-12-15] MEDS: GABAPENTIN 300 MG CAPSULE PO SCH ×3 (06:17→22:08)
[2019-12-15] MEDS: chlordiazePOXIDE HCL 25 MG CAPSULE PO SCH ×3 (06:17→22:06)
[2019-12-15] MEDS: hydrOXYzine PAMOATE 25 MG CAPSULE (FP) PO SCH ×2 (06:17→10:14)
[2019-12-15] MEDS ORDERED: ELVITEG/COB/EMTRI/TENOFO (STRIBILD) TABLET -NF PO SCH (10:00)
[2019-12-15] MEDS: NICOTINE 14 MG/24 HOURS TOPICAL PATCH TD SCH (10:12)
[2019-12-15] MEDS: PRENATAL VITAMINS W/ FOLIC ACID TABLET (FP) PO SCH (10:13)
--- NOTE | 2019-12-15 10:26 | CONSULT ---
[facility] Psychiatric Consult - Data Date of interview: 12/15/19 Admission source: Self-referred Identifying data: Mr Terry is a 55 years old single Black male, unemployed receiving HASA, living in an SRO seeking detox treatment for alcohol, cocaine and cannabis Substance Abuse History: Reports history of alcohol, cocaine and cannabis use. Refer to addiction counselor's summary for further information Medical History: Significant for HIV infection since 1994(on ART medications)avascular necrosis of left hip, spinal stenosis, chronic lumbar pain, degenerative disc disease, left hip pain, sciatica, peripheral neuropathy, hypothyroidism and history of treatment for syphilis. Patient ambulates with a walker. Smokes cigarettes 2 ppd Psychiatric History: Patient is known for multiple previous admissions to this facility. He reports that his first psychiatric contact occured while in longterm more than 6 years ago. He said that he was diagnposed with PTSD, Schizoaffective Disorder and started on psychotropic medications. Reports multiple previous psychiatric hospitalizations at various institutions including [facility], [facility], [facility] and [facility]. Reports that he is not currently receving outpatient psychiatric treatment. Told parts data writer that his mos recent OPD care was at the [facility] in [facility]. Reports history of treatment with Risperdal, Trazodone, Trilafon, Sertraline, Nortriltyline and Cogentin. Reportedly he is non-compliant with OPD care and medications. During most recent admission to this facility, he saw Dr Mcmanus on 10/15/19 and he was prescribed Trazadone 50 mg/hs. Reportedly he has three previous suicide attempts (overdoses with medications, ingestion of bleach, self-mutilation). At present, denies experiencing psychotic, manic or depressive symptoms, S/H ideations. However, reports feeling anxious and sleeping poorly. Requests to be ordered Klonopin for anxiety Physical/Sexual Abuse/Trauma History: Not discussed in this interview. Records ([facility]) reveal the following : no reported history of sexual abuse + history of 30 years of incarceration (armed robbery + homicide). Released in March 2017. Currently on parole. Mental Status Exam - Mental Status Exam Alert and Oriented to: Time, Place, Person Cognitive Function: Fair Patient Appearance: Well Groomed Mood: Anxious Affect: Appropriate Patient Behavior: Cooperative Speech Pattern: Clear Voice Loudness: Normal Thought Process: Intact, Goal Oriented Hallucinations: Denies Suicidal Ideation: Denies Homicidal Ideation: Denies Insight/Judgement: Poor Sleep: Poorly Appetite: Good Muscle strength/Tone: Normal Gait/Station: Normal Psychiatric Findings - Problem List ([place] 1, 2,3) (1) PTSD (post-traumatic stress disorder) Current Visit: No Status: Chronic Comment: As per history. (2) Bipolar disorder Current Visit: Yes Status: Chronic (3) Schizoaffective disorder Current Visit: No Status: Ruled-out Comment: Self-report.Asymptomatic at this time.Currently on medications.Ongoing OPD care at [facility] in [facility]. (4) Substance-induced anxiety disorder Current Visit: Yes Status: Acute (5) Substance induced mood disorder Current Visit: No Status: Acute (6) Substance-induced sleep disorder Current Visit: Yes Status: Acute (7) Alcohol dependence with uncomplicated withdrawal Current Visit: Yes Status: Acute (8) Cocaine dependence Current Visit: No Status: Acute (9) Cannabis dependence, uncomplicated Current Visit: No Status: Chronic (10) Nicotine dependence Current Visit: Yes Status: Chronic (11) HIV (human immunodeficiency virus infection) Current Visit: Yes Status: Chronic Qualifiers: HIV symptom status: unspecified Qualified Code(s): B20 - Human immunodeficiency virus [HIV] disease (12) Avascular necrosis Current Visit: Yes Status: Chronic (13) Sciatica Current Visit: Yes Status: Chronic Qualifiers: Laterality: bilateral Qualified Code(s): M54.31 - Sciatica, right side; M54.32 - Sciatica, left side (14) History of degenerative disc disease Current Visit: No Status: Chronic - Initial Treatment Plan Initial Treatment Plan: 1) Resume Trazadone 50 mg po HS. 2) Start Vistaril 50 mg po Q 4hrs prn for anxiety. 3) Continue inpatient detoxification
[2019-12-15] MEDS ORDERED: hydrOXYzine PAMOATE 50 MG CAPSULE (FP) PO PRN (10:36)
[2019-12-15 11:03] LABS: HEMATOCRIT 43.1 % (35.4-49); HEMOGLOBIN 14.1 GM/dL (11.7-16.9); MCH 31.6 pg (25.7-33.7); MCHC 32.7 g/dl (32.0-35.9); MEAN CELL VOLUME 96.7 fl (80-96); MEAN PLT VOLUME 9.6 fl (7.5-11.1); PLATELET COUNT 223 K/MM3 (134-434); RBC 4.46 M/mm3 (4.00-5.60); RDW 15.1 % (11.9-15.9); WHITE BLOOD COUNT 3.4 K/mm3 (4.0-10.0)
[2019-12-15 11:11] LABS: ALBUMIN 3.6 g/dl (3.4-5.0); BILIRUBIN,TOTAL 0.5 mg/dL (0.2-1); BLOOD UREA NITROGEN 16.3 mg/dL (7-18); CALCIUM 8.9 mg/dL (8.5-10.1); CREATININE 1.3 mg/dL (0.55-1.3); POTASSIUM 4.3 mmol/L (3.5-5.1); TOT PROT 7.3 g/dl (6.4-8.2)
--- NOTE | 2019-12-15 15:05 | PN ---
S CIWA - CIWA Score Nausea/Vomitin-No Nausea/No Vomiting Muscle Tremors: 1-None Visible, but [place] Anxiety: 3 Agitation: 4-Moderately Restless Paroxysmal Sweats: No Perspiration Orientation: 0-Oriented Tacttile Disturbances: 0-None Auditory Disturbances: 0-None Visual Disturbances: 2-Mild Sensitivity Headache: 2-Mild CIWA-Ar Total Score: 12 BHS Progress Note (SOAP) Subjective: 55 years old male admitted on 12/14/19 for alcohol withdrawal sx management treating with librium detox regiment ambulating with walker social with peers in day room requests percocet and tramadol for chronic back and hips pain "I need hips r eplacement" ensure 120 ml po tid due to bmi 19.8 physician underwriter call preferred pharmacy at [phone] pharmacy closed states that he is taking bactrim ds po daily will edna preferred pharmacy tomorrow Objective: 12/15/19 15:03 Vital Signs - 24 hr 12/14/19 12/14/19 12/14/19 15:42 16:25 16:40 Temperature 97.3 F L 97.1 F L Pulse Rate 82 62 Respiratory 18 16 Rate Blood Pressure 100/66 137/84 O2 Sat by Pulse 99 Oximetry (%) 12/14/19 12/15/19 12/15/19 20:35 06:25 08:35 Temperature 97.1 F L 97.3 F L 97.1 F L Pulse Rate 66 59 L 63 Respiratory 16 18 18 Rate Blood Pressure 126/79 121/69 131/82 O2 Sat by Pulse 99 97 Oximetry (%) 12/15/19 13:07 Temperature 98.1 F Pulse Rate 80 Respiratory 18 Rate Blood Pressure 128/77 O2 Sat by Pulse 97 Oximetry (%) Laboratory Tests 12/15/19 12/15/19 12/15/19 07:00 07:00 07:00 WBC 3.4 L RBC 4.46 Hgb 14.1 Hct 43.1 MCV 96.7 H MCH 31.6 MCHC 32.7 RDW 15.1 D Plt Count 223 MPV 9.6 D Sodium 139 Potassium 4.3 Chloride 106 Carbon Dioxide 27 Anion Gap 7 L BUN 16.3 Creatinine 1.3 Est GFR (CKD-EPI)AfAm 70.69 Est GFR (CKD-EPI)NonAf 60.99 Random Glucose 158 H Calcium 8.9 Total Bilirubin 0.5 AST 15 ALT 18 Alkaline Phosphatase 75 Total Protein 7.3 Albumin 3.6 Syphilis Serology Non-reactive glucose elevation 12/15/19 15:05 fasting glucose pending covid pending bgm before breakfast change ensure to glucerna Assessment: 12/15/19 15:06 alcohol withdrawal glucose serum elevation 12/15/19 15:07 hiv Plan: librium regiment fasting glucose bgm call preferred pharmacy for name of antivirus medication mr berry can not remember the name of infectious disease provider
[2019-12-15] MEDS: SULFAMETHOXAZOLE/TRIMETHOPRIM 800MG/160MG D.S. TABLET PO SCH (16:02)
[2019-12-15] MEDS: traZODone HCL 50 MG TABLET (FP) PO SCH (22:08)
[2019-12-15] MEDS: THIAMINE HCL 100 MG TABLET (FP) PO SCH (22:08)
[2019-12-15] MEDS: MELATONIN 5 MG TABLETS PO SCH (22:08)
[2019-12-16] MEDS: GABAPENTIN 300 MG CAPSULE PO SCH ×3 (06:23→22:05)
[2019-12-16] MEDS: chlordiazePOXIDE 5 MG CAPSULE PO SCH ×2 (06:24→13:31)
--- NOTE | 2019-12-16 09:28 | PN ---
S CIWA - CIWA Score Nausea/Vomitin-No Nausea/No Vomiting Muscle Tremors: 1-None Visible, but [place] Anxiety: 1-Mildly Anxious Agitation: 1-Slight > Activity Paroxysmal Sweats: No Perspiration Orientation: 0-Oriented Tacttile Disturbances: 0-None Auditory Disturbances: 0-None Visual Disturbances: 2-Mild Sensitivity Headache: 2-Mild CIWA-Ar Total Score: 7 BHS Progress Note (SOAP) Subjective: 55 years old male admitted on 12/14/19 for alcohol withdrawal sx management treating with librium detox regiment typewriter ribbon winder call [phone] mr berry is no longer taking stribild discontinue stribild from home medication list taking biktarvy daily last filled 11/29/19 resume biktarvy reports chronic back and hips pain requests precocet health teaching on risks of percocet hot pad to back and hips Objective: 12/16/19 09:26 Vital Signs - 24 hr 12/15/19 12/15/19 12/15/19 13:07 17:22 20:44 Temperature 98.1 F 97.5 F L 97.7 F Pulse Rate 80 75 71 Respiratory 18 18 18 Rate Blood Pressure 128/77 120/76 126/77 O2 Sat by Pulse 97 99 97 Oximetry (%) 12/16/19 12/16/19 06:06 08:31 Temperature 97.0 F L 97.2 F L Pulse Rate 65 71 Respiratory 18 18 Rate Blood Pressure 137/84 137/79 O2 Sat by Pulse 100 Oximetry (%) Laboratory Tests 12/15/19 12/15/19 12/15/19 07:00 07:00 07:00 WBC 3.4 L RBC 4.46 Hgb 14.1 Hct 43.1 MCV 96.7 H MCH 31.6 MCHC 32.7 RDW 15.1 D Plt Count 223 MPV 9.6 D Sodium 139 Potassium 4.3 Chloride 106 Carbon Dioxide 27 Anion Gap 7 L BUN 16.3 Creatinine 1.3 Est GFR (CKD-EPI)AfAm 70.69 Est GFR (CKD-EPI)NonAf 60.99 POC Glucometer Random Glucose 158 H Calcium 8.9 Total Bilirubin 0.5 AST 15 ALT 18 Alkaline Phosphatase 75 Total Protein 7.3 Albumin 3.6 Syphilis Serology Non-reactive 12/16/19 06:14 WBC RBC Hgb Hct MCV MCH MCHC RDW Plt Count MPV Sodium Potassium Chloride Carbon Dioxide Anion Gap BUN Creatinine Est GFR (CKD-EPI)AfAm Est GFR (CKD-EPI)NonAf POC Glucometer 160 Random Glucose Calcium Total Bilirubin AST ALT Alkaline Phosphatase Total Protein Albumin Syphilis Serology 12/16/19 09:26 mr berry demands ensure "I can have as much sugar as I want" "I do not have sugar problem" discontinue glucerna resume ensure Assessment: 12/16/19 09:28 alcohol withdrawal hiv Plan: librium regiment one biktarvy po daily
[2019-12-16] MEDS: PRENATAL VITAMINS W/ FOLIC ACID TABLET (FP) PO SCH (09:33)
[2019-12-16] MEDS: SULFAMETHOXAZOLE/TRIMETHOPRIM 800MG/160MG D.S. TABLET PO SCH (10:18)
[2019-12-16] MEDS: BICTEGRAV/EMTRICIT/TENOFOV (BIKTARVY) 50-200-25 MG TABLET PO SCH (10:21)
[2019-12-16] MEDS: NICOTINE 14 MG/24 HOURS TOPICAL PATCH TD SCH (10:25)
[2019-12-16] MEDS ORDERED: diazePAM 5 MG TABLET PO PRN (13:37)
[2019-12-16] MEDS: MINERAL OIL/PETROLAT/WATER TOPICAL CREAM 113 GM JAR TP SCH ×2 (13:55→22:04)
[2019-12-16] MEDS: diazePAM 5 MG TABLET PO SCH ×2 (15:11→22:03)
[2019-12-16] MEDS: LIDOCAINE 5% TOPICAL PATCH TP SCH (16:22)
[2019-12-16] MEDS ORDERED: LIDOCAINE PATCH REMOVAL MC SCH (22:00)
[2019-12-16] MEDS: traZODone HCL 50 MG TABLET (FP) PO SCH (22:04)
[2019-12-16] MEDS: THIAMINE HCL 100 MG TABLET (FP) PO SCH (22:05)
[2019-12-16] MEDS: MELATONIN 5 MG TABLETS PO SCH (22:05)
[2019-12-17] MEDS ORDERED: chlordiazePOXIDE HCL 10 MG CAPSULE PO PRN
[2019-12-17] MEDS ORDERED: chlordiazePOXIDE HCL 10 MG CAPSULE PO SCH (05:00)
[2019-12-17] MEDS: diazePAM 5 MG TABLET PO SCH ×2 (05:19→17:13)
[2019-12-17] MEDS: GABAPENTIN 300 MG CAPSULE PO SCH ×2 (05:20→14:02)
[2019-12-17] MEDS: MINERAL OIL/PETROLAT/WATER TOPICAL CREAM 113 GM JAR TP SCH ×2 (05:22→14:02)
[2019-12-17] MEDS: PRENATAL VITAMINS W/ FOLIC ACID TABLET (FP) PO SCH (07:45)
[2019-12-17] MEDS ORDERED: MASKS NR ONE (09:15)
[2019-12-17] MEDS: BICTEGRAV/EMTRICIT/TENOFOV (BIKTARVY) 50-200-25 MG TABLET PO SCH (10:35)
[2019-12-17] MEDS: LIDOCAINE 5% TOPICAL PATCH TP SCH (10:35)
[2019-12-17] MEDS: SULFAMETHOXAZOLE/TRIMETHOPRIM 800MG/160MG D.S. TABLET PO SCH (10:35)
[2019-12-17] MEDS: NICOTINE 14 MG/24 HOURS TOPICAL PATCH TD SCH (10:36)
--- NOTE | 2019-12-17 11:27 | PN ---
[facility] CIWA - CIWA Score Nausea/Vomitin-Mild Nausea/No Vomiting Muscle Tremors: 1-None Visible, but [place] Anxiety: 2 Agitation: 2 Paroxysmal Sweats: No Perspiration Orientation: 0-Oriented Tacttile Disturbances: 0-None Auditory Disturbances: 0-None Visual Disturbances: 0-None Headache: 1-Very Mild CIWA-Ar Total Score: 7 S Progress Note (SOAP) Subjective: alert,irritable,anxious,interrupted sleep,pain in the left hip,ambulate with walker Objective: 12/17/19 11:27 Vital Signs Temperature 97.3 F L 12/17/19 09:00 Pulse Rate 87 12/17/19 09:00 Respiratory Rate 18 12/17/19 09:00 Blood Pressure 119/63 12/17/19 09:00 O2 Sat by Pulse Oximetry (%) 100 12/17/19 05:43 Assessment: 12/17/19 11:28 withdrawal symptom Plan: continue detox valium regimen,discharge in am
[2019-12-17 17:39] VITALS: BP 131/87; PULSE 76; TEMP 96.9
--- NOTE | 2019-12-17 21:18 | PN ---
[facility] Progress Note Note: The nurse Ms. Davis notified me that patient who is scheduled for discharge at 8.00AM tomorrow requested to be discharged at 12.01AM and he wants to see a provider. I saw him and offered to discharge patient now because his requested time will not be a safe discharge considering the time and the fact that he is wheel chair bound. In addition, he is requesting a prescription for all his medications and transportation to a Rehab facility. Patient was asked if he discussed this with a counselor, he became verbally abusive and demanded to be transferred to emergency room. He was informed that there was no defined reason to send him to [facility] ER. He states ''If I tell you I have chest pain, you must send me out." After discussing with patient, he agreed to be discharged at 8.00AM and I left the floor. I was called again to the floor that patient is complaining of chest pain. I informed the patient that I will order an EKG and if it is abnormal, he will be sent to ER. Patient refused EKG and reported auditory hallucination. He became threatening, belligerent, verbally abusive and disruptive. 911 and police of [facility] were called. Patient became aggressive and combative. He threatened that he will wait in the parking to shoot up staff and to the police that he will use their gun to shoot them. The police called for a back up and there were about 20 police officers on the unit. He continued his aggressive behavior, throwing things, spitting at everyone and refused the ambulance. He was eventually kept under control, handcuffed and taken away by the ambulance to [facility]. Patient is a danger to staff and other patients threatening to bring a gun someday and shoot people in the parking lot. Vital Signs Temperature 96.9 F L 12/17/19 16:52 Pulse Rate 76 12/17/19 16:52 Respiratory Rate 18 12/17/19 16:52 Blood Pressure 131/87 12/17/19 16:52 O2 Sat by Pulse Oximetry (%) 99 12/17/19 16:52 Laboratory Last Values WBC 3.4 K/mm3 (4.0-10.0) L 12/15/19 07:00 RBC 4.46 M/mm3 (4.00-5.60) 12/15/19 07:00 Hgb 14.1 GM/dL (11.7-16.9) 12/15/19 07:00 Hct 43.1 % (35.4-49) 12/15/19 07:00 MCV 96.7 fl (80-96) H 12/15/19 07:00 MCH 31.6 pg (25.7-33.7) 12/15/19 07:00 MCHC 32.7 g/dl (32.0-35.9) 12/15/19 07:00 RDW 15.1 % (11.9-15.9) D 12/15/19 07:00 Plt Count 223 K/MM3 (134-434) 12/15/19 07:00 MPV 9.6 fl (7.5-11.1) D 12/15/19 07:00 Sodium 139 mmol/L (136-145) 12/15/19 07:00 Potassium 4.3 mmol/L (3.5-5.1) 12/15/19 07:00 Chloride 106 mmol/L (98-107) 12/15/19 07:00 Carbon Dioxide 27 mmol/L (21-32) 12/15/19 07:00 Anion Gap 7 MMOL/L (8-16) L 12/15/19 07:00 BUN 16.3 mg/dL (7-18) 12/15/19 07:00 Creatinine 1.3 mg/dL (0.55-1.3) 12/15/19 07:00 Est GFR (CKD-EPI)AfAm 70.69 12/15/19 07:00 Est GFR (CKD-EPI)NonAf 60.99 12/15/19 07:00 POC Glucometer 95 UNITS (80-120) 12/17/19 05:18 Random Glucose 158 mg/dL (74-106) H 12/15/19 07:00 Fasting Glucose 107 mg/dL (74-106) H 12/17/19 08:15 Calcium 8.9 mg/dL (8.5-10.1) 12/15/19 07:00 Total Bilirubin 0.5 mg/dL (0.2-1) 12/15/19 07:00 AST 15 U/L (15-37) 12/15/19 07:00 ALT 18 U/L (13-61) 12/15/19 07:00 Alkaline Phosphatase 75 U/L (45-117) 12/15/19 07:00 Total Protein 7.3 g/dl (6.4-8.2) 12/15/19 07:00 Albumin 3.6 g/dl (3.4-5.0) 12/15/19 07:00 Syphilis Serology Non-reactive (NONREACTIVE) 12/15/19 07:00 COVID-19 (SANA) Not detected (Not Detected) 12/14/19 16:00 Action: Discharge patient and transfer via Ambulance to [facility]
--- NOTE | 2019-12-17 22:00 | DS ---
[facility] Detox Discharge Summary Admission Date: 12/14/19 Discharge Date: 12/17/19 - History Additional Comments: Patient is scheduled for discharge at 8.00AM tomorrow and requested to be discharged at 12.01AM. I offered to discharge patient now because his requested time will not be a safe discharge considering the time and the fact that he is wheel chair bound. He is also requesting a prescription for all his medications and transportation to [facility]. Patient was informed that there is no counselor to arrange the transportation. He became verbally abusive and demanded to be transferred to emergency room. He was informed that there was no defined reason to send him to [facility] ER. He states ''If I tell you I have chest pain, you must send me out." After discussing with patient, he agreed to be discharged at 8.00AM and I left the floor. I was called again to the floor that patient is complaining of chest pain. I informed the patient that I will order an EKG and if it is abnormal, he will be sent to ER. Patient refused EKG and reported auditory hallucination. He became threatening, belligerent, verbally abusive and disruptive. 911 and police officers were called. Patient became aggressive and combative. He threatened that he will wait in the parking to shoot up staff and to the police that he will use their gun to shoot them. The police called for a back up and there were more than 20 police officers. He continued his aggressive behavior, throwing things, spitting at everyone and refused the ambulance. He was eventually kept under control, handcuffed and taken away by the ambulance to [facility] [place]. Patient is a danger to staff and other patients threatening to bring a gun someday and shoot people in the parking lot. Discharge time was 45 minutes Pertinent Past History: Alcohol dependence with withdrawal Cocaine dependence Cannabis dependence Substance induced anxiety Substance induced mood disorder Avascular necrosis HIV+ COPD Bronchitis Bipolar disorder Schizoaffective disorder Insomnia Nicotine dependence PTSD - Physical Exam Results Vital Signs: Vital Signs Temperature 96.9 F L 12/17/19 16:52 Pulse Rate 76 12/17/19 16:52 Respiratory Rate 18 12/17/19 16:52 Blood Pressure 131/87 12/17/19 16:52 O2 Sat by Pulse Oximetry (%) 99 12/17/19 16:52 Laboratory Last Values WBC 3.4 K/mm3 (4.0-10.0) L 12/15/19 07:00 RBC 4.46 M/mm3 (4.00-5.60) 12/15/19 07:00 Hgb 14.1 GM/dL (11.7-16.9) 12/15/19 07:00 Hct 43.1 % (35.4-49) 12/15/19 07:00 MCV 96.7 fl (80-96) H 12/15/19 07:00 MCH 31.6 pg (25.7-33.7) 12/15/19 07:00 MCHC 32.7 g/dl (32.0-35.9) 12/15/19 07:00 RDW 15.1 % (11.9-15.9) D 12/15/19 07:00 Plt Count 223 K/MM3 (134-434) 12/15/19 07:00 MPV 9.6 fl (7.5-11.1) D 12/15/19 07:00 Sodium 139 mmol/L (136-145) 12/15/19 07:00 Potassium 4.3 mmol/L (3.5-5.1) 12/15/19 07:00 Chloride 106 mmol/L (98-107) 12/15/19 07:00 Carbon Dioxide 27 mmol/L (21-32) 12/15/19 07:00 Anion Gap 7 MMOL/L (8-16) L 12/15/19 07:00 BUN 16.3 mg/dL (7-18) 12/15/19 07:00 Creatinine 1.3 mg/dL (0.55-1.3) 12/15/19 07:00 Est GFR (CKD-EPI)AfAm 70.69 12/15/19 07:00 Est GFR (CKD-EPI)NonAf 60.99 12/15/19 07:00 POC Glucometer 95 UNITS (80-120) 12/17/19 05:18 Random Glucose 158 mg/dL (74-106) H 12/15/19 07:00 Fasting Glucose 107 mg/dL (74-106) H 12/17/19 08:15 Calcium 8.9 mg/dL (8.5-10.1) 12/15/19 07:00 Total Bilirubin 0.5 mg/dL (0.2-1) 12/15/19 07:00 AST 15 U/L (15-37) 12/15/19 07:00 ALT 18 U/L (13-61) 12/15/19 07:00 Alkaline Phosphatase 75 U/L (45-117) 12/15/19 07:00 Total Protein 7.3 g/dl (6.4-8.2) 12/15/19 07:00 Albumin 3.6 g/dl (3.4-5.0) 12/15/19 07:00 Syphilis Serology Non-reactive (NONREACTIVE) 12/15/19 07:00 COVID-19 (SANA) Not detected (Not Detected) 12/14/19 16:00 Labs reviewed Pertinent Admission Physical Exam Findings: Alcohol dependence with withdrawal - Medication Discharge Medications: Ambulatory Orders Gabapentin [Neurontin -] 300 mg PO Q8H 12/14/19 Bictegrav/Emtricit/Tenofov Ala [Biktarvy 50-200-25 mg Tablet] 1 each PO DAILY 12/16/19 - Diagnosis (1) Alcohol dependence with uncomplicated withdrawal Status: Chronic (2) Substance-induced anxiety disorder Status: Chronic (3) Substance-induced sleep disorder Status: Chronic (4) Avascular necrosis Status: Chronic (5) Bipolar disorder Status: Chronic (6) HIV (human immunodeficiency virus infection) Status: Chronic Qualifiers: HIV symptom status: unspecified Qualified Code(s): B20 - Human immunodeficiency virus [HIV] disease (7) Nicotine dependence Status: Chronic Qualifiers: Nicotine product type: cigarettes Substance use status: uncomplicated Qualified Code(s): F17.210 - Nicotine dependence, cigarettes, uncomplicated (8) Cocaine dependence Status: Chronic (9) Drug-induced mood disorder Status: Chronic (10) Substance induced mood disorder Status: Acute (11) Bronchitis Status: Chronic (12) COPD (chronic obstructive pulmonary disease) Status: Chronic Qualifiers: COPD type: emphysema (13) Cannabis dependence Status: Chronic (14) Cocaine dependence Status: Chronic (15) Insomnia Status: Chronic (16) Neuropathy Status: Chronic (17) PTSD (post-traumatic stress disorder) Status: Chronic (18) Schizoaffective disorder Status: Chronic - AMA Did Patient Leave Against Medical Advice: No (Discharged and transfered to [facility] for Psych. eval)
[2019-12-18] MEDS ORDERED: diazePAM 5 MG TABLET PO ONE (05:00)
[2019-12-18] MEDS ORDERED: chlordiazePOXIDE HCL 10 MG CAPSULE PO ONE (05:00)
== END 2019-12-17 21:10 | disposition short-term general hospital (02) | DRG 774 ==
LOC: YASAS 11:18 → Y3N 16:02
PROVIDERS: ADMIT Allergy & Immunology; ATTEND Allergy & Immunology
PROC: HZ2ZZZZ Detoxification Services for Substance Abuse Treatment (ICD-10-PCS; principal; 2019-12-14)
DX: F10.230 Alcohol dependence with withdrawal, uncomplicated (principal); F14.20 Cocaine dependence, uncomplicated; F12.20 Cannabis dependence, uncomplicated; F17.210 Nicotine dependence, cigarettes, uncomplicated; F19.280 Other psychoactive substance dependence with psychoactive substance-induced anxiety disorder; F19.24 Other psychoactive substance dependence with psychoactive substance-induced mood disorder; F25.9 Schizoaffective disorder, unspecified; F31.9 Bipolar disorder, unspecified; F43.10 Post-traumatic stress disorder, unspecified; Z21 Asymptomatic human immunodeficiency virus [HIV] infection status; G62.9 Polyneuropathy, unspecified; E03.9 Hypothyroidism, unspecified; G47.00 Insomnia, unspecified; J43.8 Other emphysema; J42 Unspecified chronic bronchitis; M54.31 Sciatica, right side; M54.32 Sciatica, left side; M87.052 Idiopathic aseptic necrosis of left femur; Z99.3 Dependence on wheelchair; G89.29 Other chronic pain; Z86.19 Personal history of other infectious and parasitic diseases
CPT/HCPCS: 36415; 80053; 82947; 82962; 85027; 86780; U0003

== ENCOUNTER 2021-12-21 11:01 | Inpatient (IN) | payer OTHER ==
[2021-12-21 13:05] VITALS: BMI 21.2
[2021-12-21] MEDS ORDERED: P-EPHED 60MG/TRIPROLIDI 2.5MG TABLET PO PRN (14:54)
[2021-12-21] MEDS ORDERED: MAGNESIUM HYDROX 2400MG/30ML ORAL SUSPENSION 30 ML CUP PO PRN (14:54)
[2021-12-21] MEDS ORDERED: ACETAMINOPHEN 325 MG TABLET (FP) PO PRN (14:54)
[2021-12-21] MEDS ORDERED: MAGNESIUM CITRATE 300 ML BOTTLE PO PRN (14:54)
[2021-12-21] MEDS ORDERED: NICOTINE 10 MG CARTRIDGE (INHALER) IH PRN (14:54)
[2021-12-21] MEDS ORDERED: guaiFENesin 200 MG/10 ML 10 ML UNIT-DOSE CUPS PO PRN (14:54)
[2021-12-21] MEDS ORDERED: LOPERAMIDE HCL 2 MG CAPSULE PO PRN (14:54)
[2021-12-21] MEDS ORDERED: MAG HYDROX/AL HYDROX/SIMETH 30 ML UNIT-DOSE CUP PO PRN (14:54)
[2021-12-21] MEDS ORDERED: IBUPROFEN 400 MG TABLET (FP) PO ONE (15:52)
[2021-12-21] MEDS: IBUPROFEN 400 MG TABLET (FP) PO PRN (15:53)
[2021-12-21] MEDS: PRENATAL VITAMINS W/ FOLIC ACID TABLET (FP) PO SCH (18:06)
[2021-12-21] MEDS: NICOTINE 7 MG/24 HOURS TOPICAL PATCH TD SCH (18:06)
[2021-12-21] MEDS: GABAPENTIN 300 MG CAPSULE PO SCH ×2 (18:07→23:35)
[2021-12-21] MEDS: hydrOXYzine PAMOATE 25 MG CAPSULE (FP) PO SCH ×2 (18:08→23:36)
[2021-12-21] MEDS: MELATONIN 5 MG TABLETS PO SCH (23:35)
[2021-12-21] MEDS: THIAMINE HCL 100 MG TABLET (FP) PO SCH (23:36)
[2021-12-22] MEDS: GABAPENTIN 300 MG CAPSULE PO SCH ×3 (07:36→22:50)
[2021-12-22] MEDS: hydrOXYzine PAMOATE 25 MG CAPSULE (FP) PO SCH ×5 (07:36→22:50)
[2021-12-22] MEDS: BICTEGRAV/EMTRICIT/TENOFOV (BIKTARVY) 50-200-25 MG TABLET PO SCH (10:54)
[2021-12-22] MEDS: NICOTINE 7 MG/24 HOURS TOPICAL PATCH TD SCH (10:54)
[2021-12-22] MEDS: PRENATAL VITAMINS W/ FOLIC ACID TABLET (FP) PO SCH (10:54)
[2021-12-22] MEDS: IBUPROFEN 400 MG TABLET (FP) PO PRN ×2 (10:55→22:51)
[2021-12-22] MEDS ORDERED: PNEUMOC 20-VAL CONJ-DIP CRM/PF 0.5 ML SYRINGE IM ONE (12:00)
[2021-12-22 14:49] LABS: HEMATOCRIT 40.9 % (35.4-49); HEMOGLOBIN 13.6 GM/dL (11.7-16.9); MCH 31.7 pg (25.7-33.7); MCHC 33.3 g/dl (32.0-35.9); MEAN CELL VOLUME 95.1 fl (80-96); PLATELET COUNT 221 10^3/uL (134-434); RBC 4.31 M/mm3 (4.00-5.60); RDW 13.2 % (11.9-15.9); WHITE BLOOD COUNT 3.8 K/mm3 (4.0-10.0)
[2021-12-22 15:11] LABS: CALCIUM 9.2 mg/dL (8.5-10.1)
[2021-12-22 15:12] LABS: ALBUMIN 3.5 g/dl (3.4-5.0); BLOOD UREA NITROGEN 16.4 mg/dL (7-18)
[2021-12-22 15:15] LABS: CREATININE 1.1 mg/dL (0.55-1.3)
[2021-12-22 15:17] LABS: BILIRUBIN,TOTAL 0.2 mg/dL (0.2-1); TOT PROT 7.3 g/dl (6.4-8.2)
[2021-12-22] MEDS: MELATONIN 5 MG TABLETS PO SCH (22:50)
[2021-12-22] MEDS: THIAMINE HCL 100 MG TABLET (FP) PO SCH (22:50)
[2021-12-23] MEDS: hydrOXYzine PAMOATE 25 MG CAPSULE (FP) PO SCH ×3 (06:20→13:34)
[2021-12-23] MEDS: GABAPENTIN 300 MG CAPSULE PO SCH ×2 (06:20→13:33)
[2021-12-23] MEDS: BICTEGRAV/EMTRICIT/TENOFOV (BIKTARVY) 50-200-25 MG TABLET PO SCH (07:37)
[2021-12-23] MEDS: PRENATAL VITAMINS W/ FOLIC ACID TABLET (FP) PO SCH (10:12)
[2021-12-23] MEDS: NICOTINE 7 MG/24 HOURS TOPICAL PATCH TD SCH (10:22)
[2021-12-23 13:12] VITALS: BP 133/73; PULSE 81; TEMP 99.1
[2021-12-23 15:12] LABS: SYPHILIS W/ RPR CONF NON-REACTIVE (NONREACTIVE)
== END 2021-12-23 14:40 | disposition home or self-care (01) | DRG 774 ==
LOC: YASAS 11:01 → Y3N 15:25
PROVIDERS: ADMIT Allergy & Immunology; ATTEND Surgery
PROC: HZ2ZZZZ Detoxification Services for Substance Abuse Treatment (ICD-10-PCS; principal; 2021-12-21)
DX: F14.20 Cocaine dependence, uncomplicated (principal); F13.20 Sedative, hypnotic or anxiolytic dependence, uncomplicated; F12.20 Cannabis dependence, uncomplicated; F17.210 Nicotine dependence, cigarettes, uncomplicated; F31.9 Bipolar disorder, unspecified; B20 Human immunodeficiency virus [HIV] disease; G62.9 Polyneuropathy, unspecified; J43.9 Emphysema, unspecified; M17.12 Unilateral primary osteoarthritis, left knee; R63.4 Abnormal weight loss; Z68.21 Body mass index [BMI] 21.0-21.9, adult; Z99.89 Dependence on other enabling machines and devices
CPT/HCPCS: 36415; 80053; 85027; 86780; 86803; 87811; 90677; C9803-CS; U0003; U0005

== ENCOUNTER 2022-04-19 13:36 | Inpatient (IN) | payer OTHER ==
[2022-04-19 14:14] VITALS: BMI 17.0
[2022-04-19] MEDS ORDERED: MAGNESIUM HYDROX 2400MG/30ML ORAL SUSPENSION 30 ML CUP PO PRN (15:25)
[2022-04-19] MEDS ORDERED: IBUPROFEN 400 MG TABLET (FP) PO PRN (15:25)
[2022-04-19] MEDS ORDERED: MAGNESIUM CITRATE 300 ML BOTTLE PO PRN (15:25)
[2022-04-19] MEDS ORDERED: guaiFENesin 200 MG/10 ML 10 ML UNIT-DOSE CUPS PO PRN (15:25)
[2022-04-19] MEDS ORDERED: ACETAMINOPHEN 325 MG TABLET (FP) PO PRN (15:25)
[2022-04-19] MEDS ORDERED: hydrOXYzine PAMOATE 25 MG CAPSULE (FP) PO PRN (15:25)
[2022-04-19] MEDS ORDERED: NICOTINE POLACRILEX 4 MG GUM BUC PRN (15:25)
[2022-04-19] MEDS ORDERED: NICOTINE 21 MG/24 HOURS TOPICAL PATCH TD PRN (15:25)
[2022-04-19] MEDS ORDERED: NICOTINE 10 MG CARTRIDGE (INHALER) IH PRN (15:25)
[2022-04-19] MEDS ORDERED: LOPERAMIDE HCL 2 MG CAPSULE PO PRN (15:25)
[2022-04-19] MEDS ORDERED: MAG HYDROX/AL HYDROX/SIMETH 30 ML UNIT-DOSE CUP PO PRN (15:25)
[2022-04-19] MEDS ORDERED: P-EPHED 60MG/TRIPROLIDI 2.5MG TABLET PO PRN (15:25)
[2022-04-19] MEDS ORDERED: TUBERCULIN PPD 5 TU/0.1ML VIAL ID ONE ×2 (21:02→22:12)
[2022-04-19] MEDS: THIAMINE HCL 100 MG TABLET (FP) PO SCH (22:07)
[2022-04-19] MEDS: GABAPENTIN 300 MG CAPSULE PO SCH (22:07)
[2022-04-19] MEDS: PRENATAL VITAMINS W/ FOLIC ACID TABLET (FP) PO SCH (22:08)
[2022-04-19] MEDS: MELATONIN 5 MG TABLETS PO SCH (22:08)
[2022-04-20] MEDS: GABAPENTIN 300 MG CAPSULE PO SCH ×3 (06:46→23:50)
[2022-04-20] MEDS: BICTEGRAV/EMTRICIT/TENOFOV (BIKTARVY) 50-200-25 MG TABLET PO SCH (08:25)
[2022-04-20] MEDS: PRENATAL VITAMINS W/ FOLIC ACID TABLET (FP) PO SCH (10:27)
[2022-04-20 10:54] LABS: HEMATOCRIT 38.3 % (35.4-49); HEMOGLOBIN 12.9 GM/dL (11.7-16.9); MCH 32.4 pg (25.7-33.7); MCHC 33.5 g/dl (32.0-35.9); MEAN CELL VOLUME 96.5 fl (80-96); MEAN PLT VOLUME 8.1 fl (7.5-11.1); PLATELET COUNT 183 10^3/uL (134-434); RBC 3.97 M/mm3 (4.00-5.60); RDW 13.7 % (11.9-15.9); WHITE BLOOD COUNT 3.1 K/mm3 (4.0-10.0)
[2022-04-20 11:39] LABS: ALBUMIN 3.1 g/dl (3.4-5.0); CALCIUM 8.8 mg/dL (8.5-10.1)
[2022-04-20 11:42] LABS: CREATININE 1.1 mg/dL (0.55-1.3)
[2022-04-20 11:43] LABS: BILIRUBIN,TOTAL 0.4 mg/dL (0.2-1); TOT PROT 6.7 g/dl (6.4-8.2)
[2022-04-20] MEDS: THIAMINE HCL 100 MG TABLET (FP) PO SCH (23:50)
[2022-04-20] MEDS: MELATONIN 5 MG TABLETS PO SCH (23:50)
[2022-04-21] MEDS: BICTEGRAV/EMTRICIT/TENOFOV (BIKTARVY) 50-200-25 MG TABLET PO SCH (07:11)
[2022-04-21] MEDS: GABAPENTIN 300 MG CAPSULE PO SCH ×3 (07:11→21:29)
[2022-04-21] MEDS: PRENATAL VITAMINS W/ FOLIC ACID TABLET (FP) PO SCH (09:42)
[2022-04-21] MEDS: THIAMINE HCL 100 MG TABLET (FP) PO SCH (21:29)
[2022-04-21] MEDS: MELATONIN 5 MG TABLETS PO SCH (21:30)
[2022-04-22] MEDS: BICTEGRAV/EMTRICIT/TENOFOV (BIKTARVY) 50-200-25 MG TABLET PO SCH (08:06)
[2022-04-22] MEDS: GABAPENTIN 300 MG CAPSULE PO SCH ×3 (08:06→21:33)
[2022-04-22] MEDS: PRENATAL VITAMINS W/ FOLIC ACID TABLET (FP) PO SCH (10:18)
[2022-04-22] MEDS: MELATONIN 5 MG TABLETS PO SCH (21:33)
[2022-04-22] MEDS: THIAMINE HCL 100 MG TABLET (FP) PO SCH (21:33)
[2022-04-23 02:53] LABS: URINE APPEARANCE CLEAR; URINE BILIRUBIN NEGATIVE (NEGATIVE); URINE COLOR YELLOW; URINE GLUCOSE (UA) NEGATIVE (NEGATIVE); URINE KETONE NEGATIVE (NEGATIVE); URINE LEUK ESTERASE NEGATIVE (NEGATIVE); URINE NITRITE NEGATIVE (NEGATIVE); URINE PROTEIN NEGATIVE (NEGATIVE); URINE UROBILINOGEN 0.2 mg/dL (0.2-1.0)
[2022-04-23 06:47] VITALS: RESP 20
[2022-04-23] MEDS: GABAPENTIN 300 MG CAPSULE PO SCH ×3 (07:54→21:57)
[2022-04-23] MEDS: BICTEGRAV/EMTRICIT/TENOFOV (BIKTARVY) 50-200-25 MG TABLET PO SCH (07:54)
[2022-04-23] MEDS: PRENATAL VITAMINS W/ FOLIC ACID TABLET (FP) PO SCH (10:30)
[2022-04-23] MEDS: SULFAMETHOXAZOLE/TRIMETHOPRIM 800MG/160MG D.S. TABLET PO SCH (10:30)
[2022-04-23] MEDS: MELATONIN 5 MG TABLETS PO SCH (21:56)
[2022-04-23] MEDS: THIAMINE HCL 100 MG TABLET (FP) PO SCH (21:57)
[2022-04-24 06:49] VITALS: BP 121/76; PULSE 83; TEMP 96.8
[2022-04-24] MEDS: GABAPENTIN 300 MG CAPSULE PO SCH (06:50)
[2022-04-24] MEDS: BICTEGRAV/EMTRICIT/TENOFOV (BIKTARVY) 50-200-25 MG TABLET PO SCH (07:05)
[2022-04-24] MEDS: SULFAMETHOXAZOLE/TRIMETHOPRIM 800MG/160MG D.S. TABLET PO SCH (10:15)
[2022-04-24] MEDS: PRENATAL VITAMINS W/ FOLIC ACID TABLET (FP) PO SCH (10:15)
== END 2022-04-24 13:47 | disposition left against medical advice (07) | DRG 770 ==
LOC: YASAS 13:36 → Y3E 18:44
PROVIDERS: ADMIT Allergy & Immunology; ATTEND Psychiatry & Neurology Pain Medicine
PROC: HZ42ZZZ Group Counseling for Substance Abuse Treatment, Cognitive-Behavioral (ICD-10-PCS; principal; 2022-04-19)
DX: F14.20 Cocaine dependence, uncomplicated (principal); F17.210 Nicotine dependence, cigarettes, uncomplicated; Z21 Asymptomatic human immunodeficiency virus [HIV] infection status; G62.9 Polyneuropathy, unspecified; I51.7 Cardiomegaly; M17.12 Unilateral primary osteoarthritis, left knee; R41.3 Other amnesia; R63.4 Abnormal weight loss; Z68.1 Body mass index [BMI] 19.9 or less, adult; Z99.89 Dependence on other enabling machines and devices; Z59.00 Homelessness unspecified
CPT/HCPCS: 36415; 80053; 81003; 82140; 82962; 85027; 86780; 86803; C9803-CS; U0003; U0005

== ENCOUNTER 2022-08-15 14:09 | Inpatient (IN) | payer OTHER ==
[2022-08-15 15:54] VITALS: BMI 20.3
[2022-08-15] MEDS ORDERED: LOPERAMIDE HCL 2 MG CAPSULE PO PRN (18:50)
[2022-08-15] MEDS ORDERED: IBUPROFEN 600 MG TABLET (FP) PO PRN (18:50)
[2022-08-15] MEDS ORDERED: METHOCARBAMOL 500 MG TABLET PO PRN (18:50)
[2022-08-15] MEDS ORDERED: BENZONATATE 200 MG CAPSULE PO PRN (18:50)
[2022-08-15] MEDS ORDERED: BENZOCAINE/MENTHOL (CHLORASEPTIC ) LOZENGE MM PRN (18:50)
[2022-08-15] MEDS ORDERED: NALOXONE HCL (KLOXXADO) 8 MG SPRAY NS PRN (18:50)
[2022-08-15] MEDS ORDERED: BISMUTH SUBSALICYLATE 524 MG/30 ML PO PRN (18:50)
[2022-08-15] MEDS ORDERED: ACETAMINOPHEN 325 MG TABLET (FP) PO PRN (18:50)
[2022-08-15] MEDS ORDERED: NICOTINE 10 MG CARTRIDGE (INHALER) IH PRN (18:50)
[2022-08-15] MEDS ORDERED: NALOXONE HCL 0.4 MG/ML VIAL IM PRN (18:50)
[2022-08-15] MEDS ORDERED: MAGNESIUM HYDROX 2400MG/30ML ORAL SUSPENSION 30 ML CUP PO PRN (18:50)
[2022-08-15] MEDS ORDERED: MAG HYDROX/AL HYDROX/SIMETH 30 ML UNIT-DOSE CUP PO PRN (18:50)
[2022-08-15] MEDS ORDERED: DICYCLOMINE HCL 10 MG CAPSULE PO PRN (18:50)
[2022-08-15] MEDS ORDERED: guaiFENesin 600 MG TABLET.ER (FP) PO PRN (18:50)
[2022-08-15] MEDS ORDERED: ONDANSETRON *ODT* 4 MG TABLET SL PRN (18:50)
[2022-08-15] MEDS ORDERED: POLYETHYLENE GLYCOL (HEALTHYLAX) 3350 17 GM PACKET PO PRN (18:50)
[2022-08-15] MEDS ORDERED: IBUPROFEN 400 MG TABLET (FP) PO PRN (18:50)
[2022-08-15] MEDS ORDERED: BICTEGRAV/EMTRICIT/TENOFOV (BIKTARVY) 50-200-25 MG TABLET PO SCH (19:00)
[2022-08-15] MEDS: BICTEGRAV/EMTRICIT/TENOFOV (BIKTARVY) 50-200-25 MG TABLET PO SCH (20:47)
[2022-08-15] MEDS: MELATONIN 5 MG TABLETS PO SCH (23:08)
[2022-08-15] MEDS: THIAMINE HCL 100 MG TABLET (FP) PO SCH (23:08)
[2022-08-15] MEDS: chlordiazePOXIDE HCL 25 MG CAPSULE PO SCH (23:08)
[2022-08-16] MEDS: chlordiazePOXIDE HCL 25 MG CAPSULE PO SCH ×4 (05:57→22:56)
[2022-08-16 10:14] LABS: HEMATOCRIT 34.8 % (35.4-49); HEMOGLOBIN 11.7 GM/dL (11.7-16.9); MCH 30.8 pg (25.7-33.7); MCHC 33.6 g/dl (32.0-35.9); MEAN CELL VOLUME 91.7 fl (80-96); MEAN PLT VOLUME 7.9 fl (7.5-11.1); PLATELET COUNT 222 10^3/uL (134-434); RDW 12.3 % (11.9-15.9); WHITE BLOOD COUNT 3.6 K/mm3 (4.0-10.0)
[2022-08-16] MEDS: PRENATAL VITAMINS W/ FOLIC ACID TABLET (FP) PO SCH (11:01)
[2022-08-16] MEDS: BICTEGRAV/EMTRICIT/TENOFOV (BIKTARVY) 50-200-25 MG TABLET PO SCH (11:01)
[2022-08-16] MEDS: NICOTINE 21 MG/24 HOURS TOPICAL PATCH TD SCH (11:03)
[2022-08-16 13:35] LABS: ALBUMIN 2.6 g/dl (3.4-5.0); BLOOD UREA NITROGEN 12.4 mg/dL (7-18); CALCIUM 8.2 mg/dL (8.5-10.1)
[2022-08-16 13:40] LABS: BILIRUBIN,TOTAL 0.4 mg/dL (0.2-1); TOT PROT 6.3 g/dl (6.4-8.2)
[2022-08-16] MEDS: NYSTATIN 500,000 UNITS/5 ML SUSPENSION PO SCH ×2 (18:04→23:53)
[2022-08-16] MEDS: THIAMINE HCL 100 MG TABLET (FP) PO SCH (22:45)
[2022-08-16] MEDS: MELATONIN 5 MG TABLETS PO SCH (22:45)
[2022-08-17] MEDS: NYSTATIN 500,000 UNITS/5 ML SUSPENSION PO SCH ×4 (05:36→23:06)
[2022-08-17] MEDS: chlordiazePOXIDE HCL 25 MG CAPSULE PO SCH ×4 (05:37→23:07)
[2022-08-17] MEDS: BICTEGRAV/EMTRICIT/TENOFOV (BIKTARVY) 50-200-25 MG TABLET PO SCH (10:16)
[2022-08-17] MEDS: PRENATAL VITAMINS W/ FOLIC ACID TABLET (FP) PO SCH (10:16)
[2022-08-17] MEDS: SULFAMETHOXAZOLE/TRIMETHOPRIM 800MG/160MG D.S. TABLET PO SCH (10:16)
[2022-08-17] MEDS: NICOTINE 21 MG/24 HOURS TOPICAL PATCH TD SCH (10:17)
[2022-08-17] MEDS: THIAMINE HCL 100 MG TABLET (FP) PO SCH (23:07)
[2022-08-17] MEDS: MELATONIN 5 MG TABLETS PO SCH (23:07)
[2022-08-18] MEDS: chlordiazePOXIDE HCL 10 MG CAPSULE PO SCH ×2 (05:55→10:35)
[2022-08-18] MEDS: NYSTATIN 500,000 UNITS/5 ML SUSPENSION PO SCH ×2 (06:08→11:52)
[2022-08-18 06:36] VITALS: RESP 16
[2022-08-18 09:22] VITALS: BP 111/71; PULSE 76; TEMP 97.3
[2022-08-18] MEDS: PRENATAL VITAMINS W/ FOLIC ACID TABLET (FP) PO SCH (10:34)
[2022-08-18] MEDS: BICTEGRAV/EMTRICIT/TENOFOV (BIKTARVY) 50-200-25 MG TABLET PO SCH (10:34)
[2022-08-18] MEDS: SULFAMETHOXAZOLE/TRIMETHOPRIM 800MG/160MG D.S. TABLET PO SCH (10:34)
[2022-08-18] MEDS: NICOTINE 21 MG/24 HOURS TOPICAL PATCH TD SCH (10:35)
[2022-08-19] MEDS ORDERED: chlordiazePOXIDE HCL 10 MG CAPSULE PO SCH (05:00)
[2022-08-20] MEDS ORDERED: chlordiazePOXIDE HCL 10 MG CAPSULE PO ONE (05:00)
== END 2022-08-18 01:20 | disposition home or self-care (01) | DRG 774 ==
LOC: YASAS 14:09 → Y3N 18:36
PROVIDERS: ADMIT Allergy & Immunology; ATTEND Surgery
PROC: HZ2ZZZZ Detoxification Services for Substance Abuse Treatment (ICD-10-PCS; principal; 2022-08-15)
DX: F10.230 Alcohol dependence with withdrawal, uncomplicated (principal); F14.20 Cocaine dependence, uncomplicated; F12.20 Cannabis dependence, uncomplicated; F17.210 Nicotine dependence, cigarettes, uncomplicated; B20 Human immunodeficiency virus [HIV] disease; B37.0 Candidal stomatitis; Z79.899 Other long term (current) drug therapy; G62.9 Polyneuropathy, unspecified; R50.9 Fever, unspecified; M17.12 Unilateral primary osteoarthritis, left knee; R63.4 Abnormal weight loss; Z68.20 Body mass index [BMI] 20.0-20.9, adult; Z99.89 Dependence on other enabling machines and devices
CPT/HCPCS: 36415; 80053; 85027; 86780; 87811; C9803-CS; U0003; U0005

== ENCOUNTER 2022-11-25 12:54 | Inpatient (IN) | payer OTHER ==
[2022-11-25 13:19] VITALS: BMI 19.0
[2022-11-25] MEDS ORDERED: LOPERAMIDE HCL 2 MG CAPSULE PO PRN (16:29)
[2022-11-25] MEDS ORDERED: BENZONATATE 200 MG CAPSULE PO PRN (16:29)
[2022-11-25] MEDS ORDERED: POLYETHYLENE GLYCOL (HEALTHYLAX) 3350 17 GM PACKET PO PRN (16:29)
[2022-11-25] MEDS ORDERED: guaiFENesin 600 MG TABLET.ER (FP) PO PRN (16:29)
[2022-11-25] MEDS ORDERED: NICOTINE 10 MG CARTRIDGE (INHALER) IH PRN (16:29)
[2022-11-25] MEDS ORDERED: IBUPROFEN 400 MG TABLET (FP) PO PRN (16:29)
[2022-11-25] MEDS ORDERED: MAGNESIUM HYDROX 2400MG/30ML ORAL SUSPENSION 30 ML CUP PO PRN (16:29)
[2022-11-25] MEDS ORDERED: AMMONIUM LACTATE 12% LOTION 225 GM BOTTLE TP PRN (16:29)
[2022-11-25] MEDS ORDERED: NALOXONE HCL (KLOXXADO) 8 MG SPRAY NS PRN (16:29)
[2022-11-25] MEDS ORDERED: ACETAMINOPHEN 325 MG TABLET (FP) PO PRN (16:29)
[2022-11-25] MEDS ORDERED: COLLOIDAL OATMEAL 1 BAR EACH TP PRN (16:29)
[2022-11-25] MEDS ORDERED: MAG HYDROX/AL HYDROX/SIMETH 30 ML UNIT-DOSE CUP PO PRN (16:29)
[2022-11-25] MEDS ORDERED: NALOXONE HCL 0.4 MG/ML VIAL IM PRN (16:29)
[2022-11-25] MEDS ORDERED: BENZOCAINE/MENTHOL (CHLORASEPTIC ) LOZENGE MM PRN (16:29)
[2022-11-25] MEDS ORDERED: hydrOXYzine PAMOATE 25 MG CAPSULE (FP) PO PRN (16:29)
[2022-11-25 20:37] VITALS: RESP 18
[2022-11-25] MEDS: MELATONIN 5 MG TABLETS PO SCH (21:41)
[2022-11-25] MEDS: THIAMINE HCL 100 MG TABLET (FP) PO SCH (21:42)
[2022-11-26] MEDS: PRENATAL VITAMINS W/ FOLIC ACID TABLET (FP) PO SCH (09:17)
[2022-11-26] MEDS: SULFAMETHOXAZOLE/TRIMETHOPRIM 800MG/160MG D.S. TABLET PO SCH (09:17)
[2022-11-26] MEDS: BICTEGRAV/EMTRICIT/TENOFOV (BIKTARVY) 50-200-25 MG TABLET PO SCH (09:17)
[2022-11-26 10:43] LABS: POTASSIUM 3.9 mmol/L (3.5-5.1)
[2022-11-26 10:47] LABS: CALCIUM 8.4 mg/dL (8.5-10.1)
[2022-11-26 10:48] LABS: ALBUMIN 2.8 g/dl (3.4-5.0); BLOOD UREA NITROGEN 17.7 mg/dL (7-18)
[2022-11-26 10:51] LABS: CREATININE 1.2 mg/dL (0.55-1.3)
[2022-11-26 10:52] LABS: TOT PROT 6.4 g/dl (6.4-8.2)
[2022-11-26 10:53] LABS: BILIRUBIN,TOTAL 0.3 mg/dL (0.2-1)
[2022-11-26 11:03] LABS: HEMATOCRIT 35.8 % (35.4-49); HEMOGLOBIN 12.2 GM/dL (11.7-16.9); MCH 31.6 pg (25.7-33.7); MCHC 34.1 g/dl (32.0-35.9); MEAN CELL VOLUME 92.6 fl (80-96); MEAN PLT VOLUME 8.3 fl (7.5-11.1); PLATELET COUNT 199 10^3/uL (134-434); RBC 3.87 M/mm3 (4.00-5.60); RDW 14.2 % (11.9-15.9)
[2022-11-26] MEDS: THIAMINE HCL 100 MG TABLET (FP) PO SCH (21:12)
[2022-11-26] MEDS: MELATONIN 5 MG TABLETS PO SCH (21:13)
[2022-11-27 07:39] VITALS: TEMP 98.2
[2022-11-27] MEDS: BICTEGRAV/EMTRICIT/TENOFOV (BIKTARVY) 50-200-25 MG TABLET PO SCH (08:59)
[2022-11-27] MEDS: SULFAMETHOXAZOLE/TRIMETHOPRIM 800MG/160MG D.S. TABLET PO SCH (08:59)
[2022-11-27] MEDS: PRENATAL VITAMINS W/ FOLIC ACID TABLET (FP) PO SCH (08:59)
[2022-11-27] MEDS: IBUPROFEN 600 MG TABLET (FP) PO PRN ×2 (10:49→21:29)
[2022-11-27 11:56] LABS: EPI CELLS 18 /uL (0-25.1); HYALINE CASTS 1 /uL (0-3.1); PH,URINE 6.5 (5.0-8.0); URINE APPEARANCE CLOUDY; URINE BACTERIA 10 /uL (0-1359); URINE BILIRUBIN NEGATIVE (NEGATIVE); URINE COLOR YELLOW; URINE GLUCOSE (UA) NEGATIVE (NEGATIVE); URINE KETONE NEGATIVE (NEGATIVE); URINE LEUK ESTERASE NEGATIVE (NEGATIVE); URINE NITRITE NEGATIVE (NEGATIVE); URINE PROTEIN NEGATIVE (NEGATIVE); URINE RBC 99 /uL (0-23.9); URINE UROBILINOGEN 0.2 mg/dL (0.2-1.0); URINE WBC 6 /uL (0-25.8)
[2022-11-27] MEDS: THIAMINE HCL 100 MG TABLET (FP) PO SCH (21:28)
[2022-11-27] MEDS: MELATONIN 5 MG TABLETS PO SCH (21:28)
[2022-11-28 07:35] VITALS: BP 124/78; PULSE 77
[2022-11-28] MEDS: BICTEGRAV/EMTRICIT/TENOFOV (BIKTARVY) 50-200-25 MG TABLET PO SCH (10:45)
[2022-11-28] MEDS: SULFAMETHOXAZOLE/TRIMETHOPRIM 800MG/160MG D.S. TABLET PO SCH (10:45)
[2022-11-28] MEDS: PRENATAL VITAMINS W/ FOLIC ACID TABLET (FP) PO SCH (10:45)
[2022-11-28] MEDS ORDERED: SALICYLIC ACID (WART REMOVER) 9 ML LIQUID TP SCH (11:00)
[2022-11-28] MEDS ORDERED: CLOTRIMAZOLE 10 MG TROCHE PO SCH (14:00)
[2022-11-28] MEDS ORDERED: TOLNAFTATE 1% CREAM 15 GM TUBE TP SCH (22:00)
== END 2022-11-28 16:14 | disposition left against medical advice (07) | DRG 770 ==
LOC: YASAS 12:54 → Y3E 16:38
PROVIDERS: ADMIT Allergy & Immunology; ATTEND Surgery
PROC: HZ42ZZZ Group Counseling for Substance Abuse Treatment, Cognitive-Behavioral (ICD-10-PCS; principal; 2022-11-25)
DX: F14.20 Cocaine dependence, uncomplicated (principal); F17.210 Nicotine dependence, cigarettes, uncomplicated; B20 Human immunodeficiency virus [HIV] disease; B37.0 Candidal stomatitis; G62.9 Polyneuropathy, unspecified; M17.12 Unilateral primary osteoarthritis, left knee; M16.12 Unilateral primary osteoarthritis, left hip; R63.4 Abnormal weight loss; Z68.1 Body mass index [BMI] 19.9 or less, adult; Z99.89 Dependence on other enabling machines and devices
CPT/HCPCS: 36415; 80053; 81003; 85027; 86780; 87086; 87635

== ENCOUNTER 2023-01-26 16:55 | Inpatient (IN) | payer OTHER ==
[2023-01-26 19:02] VITALS: BMI 19.8
[2023-01-26] MEDS ORDERED: BISMUTH SUBSALICYLATE 524 MG/30 ML PO PRN (20:45)
[2023-01-26] MEDS ORDERED: ACETAMINOPHEN 325 MG TABLET (FP) PO PRN (20:45)
[2023-01-26] MEDS ORDERED: DICYCLOMINE HCL 10 MG CAPSULE PO PRN (20:45)
[2023-01-26] MEDS ORDERED: P-EPHED 60MG/TRIPROLIDI 2.5MG TABLET PO PRN (20:45)
[2023-01-26] MEDS ORDERED: BENZONATATE 200 MG CAPSULE PO PRN (20:45)
[2023-01-26] MEDS ORDERED: POLYETHYLENE GLYCOL (HEALTHYLAX) 3350 17 GM PACKET PO PRN (20:45)
[2023-01-26] MEDS ORDERED: MAG HYDROX/AL HYDROX/SIMETH 30 ML UNIT-DOSE CUP PO PRN (20:45)
[2023-01-26] MEDS ORDERED: guaiFENesin 600 MG TABLET.ER (FP) PO PRN (20:45)
[2023-01-26] MEDS ORDERED: BENZOCAINE/MENTHOL (CHLORASEPTIC ) LOZENGE MM PRN (20:45)
[2023-01-26] MEDS ORDERED: IBUPROFEN 400 MG TABLET (FP) PO PRN (20:45)
[2023-01-26] MEDS ORDERED: MAGNESIUM HYDROX 2400MG/30ML ORAL SUSPENSION 30 ML CUP PO PRN (20:45)
[2023-01-26] MEDS ORDERED: LOPERAMIDE HCL 2 MG CAPSULE PO PRN (20:45)
[2023-01-26] MEDS ORDERED: ONDANSETRON *ODT* 4 MG TABLET SL PRN (20:45)
[2023-01-26] MEDS ORDERED: METHOCARBAMOL 500 MG TABLET PO PRN (20:45)
[2023-01-27] MEDS ORDERED: chlordiazePOXIDE HCL 25 MG CAPSULE PO PRN (09:30)
[2023-01-27] MEDS: chlordiazePOXIDE HCL 25 MG CAPSULE PO SCH ×3 (10:31→23:44)
[2023-01-27] MEDS: PRENATAL VITAMINS W/ FOLIC ACID TABLET (FP) PO SCH (10:31)
[2023-01-27] MEDS: BICTEGRAV/EMTRICIT/TENOFOV (BIKTARVY) 50-200-25 MG TABLET PO SCH (10:32)
[2023-01-27] MEDS: SULFAMETHOXAZOLE/TRIMETHOPRIM 800MG/160MG D.S. TABLET PO SCH (10:32)
[2023-01-27] MEDS: IBUPROFEN 600 MG TABLET (FP) PO PRN (18:11)
[2023-01-27] MEDS: THIAMINE HCL 100 MG TABLET (FP) PO SCH ×2 (23:44)
[2023-01-27] MEDS: MELATONIN 5 MG TABLETS PO SCH ×2 (23:45)
[2023-01-28] MEDS: chlordiazePOXIDE HCL 25 MG CAPSULE PO SCH ×4 (05:27→23:06)
[2023-01-28] MEDS: BICTEGRAV/EMTRICIT/TENOFOV (BIKTARVY) 50-200-25 MG TABLET PO SCH (10:26)
[2023-01-28] MEDS: SULFAMETHOXAZOLE/TRIMETHOPRIM 800MG/160MG D.S. TABLET PO SCH (10:26)
[2023-01-28] MEDS: IBUPROFEN 600 MG TABLET (FP) PO PRN (10:27)
[2023-01-28] MEDS: PRENATAL VITAMINS W/ FOLIC ACID TABLET (FP) PO SCH (10:27)
[2023-01-28 10:38] LABS: HEMOGLOBIN 12.1 GM/dL (11.7-16.9); MCH 31.2 pg (25.7-33.7); MCHC 32.6 g/dl (32.0-35.9); MEAN CELL VOLUME 95.6 fl (80-96); MEAN PLT VOLUME 8.7 fl (7.5-11.1); PLATELET COUNT 201 10^3/uL (134-434); POTASSIUM 4.1 mmol/L (3.5-5.1); RBC 3.87 M/mm3 (4.00-5.60); RDW 13.8 % (11.9-15.9); WHITE BLOOD COUNT 2.7 K/mm3 (4.0-10.0)
[2023-01-28 10:43] LABS: BLOOD UREA NITROGEN 17.2 mg/dL (7-18); CALCIUM 8.4 mg/dL (8.5-10.1)
[2023-01-28 10:44] LABS: ALBUMIN 2.7 g/dl (3.4-5.0)
[2023-01-28 10:47] LABS: BILIRUBIN,TOTAL 0.2 mg/dL (0.2-1); TOT PROT 6.4 g/dl (6.4-8.2)
[2023-01-28 20:49] VITALS: RESP 18
[2023-01-28] MEDS: MELATONIN 5 MG TABLETS PO SCH (23:06)
[2023-01-28] MEDS: THIAMINE HCL 100 MG TABLET (FP) PO SCH (23:07)
[2023-01-29] MEDS ORDERED: chlordiazePOXIDE HCL 25 MG CAPSULE PO SCH (05:00)
[2023-01-29 06:34] VITALS: BP 149/82; PULSE 73; TEMP 97.6
[2023-01-30] MEDS ORDERED: chlordiazePOXIDE HCL 10 MG CAPSULE PO PRN
[2023-01-30] MEDS ORDERED: chlordiazePOXIDE HCL 10 MG CAPSULE PO SCH (05:00)
[2023-01-31] MEDS ORDERED: chlordiazePOXIDE HCL 10 MG CAPSULE PO SCH (05:00)
[2023-02-01] MEDS ORDERED: chlordiazePOXIDE HCL 10 MG CAPSULE PO ONE (05:00)
== END 2023-01-29 07:28 | disposition left against medical advice (07) | DRG 770 ==
LOC: YASAS 16:55 → Y6N 23:48
PROVIDERS: ADMIT Allergy & Immunology; ATTEND Surgery
PROC: HZ2ZZZZ Detoxification Services for Substance Abuse Treatment (ICD-10-PCS; principal; 2023-01-26)
DX: F10.20 Alcohol dependence, uncomplicated (principal); F14.20 Cocaine dependence, uncomplicated; F17.210 Nicotine dependence, cigarettes, uncomplicated; Z21 Asymptomatic human immunodeficiency virus [HIV] infection status; M17.12 Unilateral primary osteoarthritis, left knee; Z99.89 Dependence on other enabling machines and devices
CPT/HCPCS: 36415; 80053; 85027; 86780; 87635

== ENCOUNTER 2023-06-16 10:15 | Inpatient (IN) | payer OTHER ==
[2023-06-16 10:51] VITALS: BMI 19.0
[2023-06-16] MEDS ORDERED: IBUPROFEN 400 MG TABLET (FP) PO PRN (15:15)
[2023-06-16] MEDS ORDERED: DOCUSATE SODIUM 100 MG CAPSULE (FP) PO PRN (15:15)
[2023-06-16] MEDS ORDERED: NICOTINE POLACRILEX 2 MG LOZENGE BC PRN (15:15)
[2023-06-16] MEDS ORDERED: BENZOCAINE/MENTHOL (CHLORASEPTIC ) LOZENGE MM PRN (15:15)
[2023-06-16] MEDS ORDERED: MAG HYDROX/AL HYDROX/SIMETH 30 ML UNIT-DOSE CUP PO PRN (15:15)
[2023-06-16] MEDS ORDERED: POLYETHYLENE GLYCOL (HEALTHYLAX) 3350 17 GM PACKET PO PRN (15:15)
[2023-06-16] MEDS ORDERED: MAGNESIUM HYDROX 2400MG/30ML ORAL SUSPENSION 30 ML CUP PO PRN (15:15)
[2023-06-16] MEDS ORDERED: P-EPHED 60MG/TRIPROLIDI 2.5MG TABLET PO PRN (15:15)
[2023-06-16] MEDS ORDERED: BENZONATATE 200 MG CAPSULE PO PRN (15:15)
[2023-06-16] MEDS ORDERED: guaiFENesin 600 MG TABLET.ER (FP) PO PRN (15:15)
[2023-06-16] MEDS ORDERED: ACETAMINOPHEN 325 MG TABLET (FP) PO PRN (15:15)
[2023-06-16] MEDS ORDERED: LOPERAMIDE HCL 2 MG CAPSULE PO PRN (15:15)
[2023-06-16] MEDS ORDERED: METHOCARBAMOL 500 MG TABLET PO SCH (15:30)
[2023-06-16] MEDS: IBUPROFEN 600 MG TABLET (FP) PO PRN (15:48)
[2023-06-16] MEDS ORDERED: IBUPROFEN 600 MG TABLET (FP) PO ONE (15:50)
[2023-06-16 18:00] VITALS: RESP 18
[2023-06-16] MEDS: MELATONIN 5 MG TABLETS PO SCH (21:33)
[2023-06-16] MEDS: THIAMINE HCL 100 MG TABLET (FP) PO SCH (21:33)
[2023-06-17] MEDS: METHOCARBAMOL 500 MG TABLET PO PRN ×2 (06:16→20:11)
[2023-06-17] MEDS: IBUPROFEN 600 MG TABLET (FP) PO PRN ×2 (06:16→15:11)
[2023-06-17] MEDS: hydrOXYzine PAMOATE 25 MG CAPSULE (FP) PO PRN (06:17)
[2023-06-17] MEDS: BICTEGRAV/EMTRICIT/TENOFOV (BIKTARVY) 50-200-25 MG TABLET PO SCH (07:05)
[2023-06-17] MEDS ORDERED: SULFAMETHOXAZOLE/TRIMETHOPRIM 800MG/160MG D.S. TABLET PO SCH (10:00)
[2023-06-17] MEDS ORDERED: PRENATAL VITAMINS W/ FOLIC ACID TABLET (FP) PO SCH (10:00)
[2023-06-17 11:22] LABS: URINE APPEARANCE CLEAR; URINE BILIRUBIN NEGATIVE (NEGATIVE); URINE COLOR YELLOW; URINE GLUCOSE (UA) NEGATIVE (NEGATIVE); URINE KETONE NEGATIVE (NEGATIVE); URINE LEUK ESTERASE NEGATIVE (NEGATIVE); URINE NITRITE NEGATIVE (NEGATIVE); URINE PROTEIN NEGATIVE (NEGATIVE); URINE UROBILINOGEN 0.2 mg/dL (0.2-1.0)
[2023-06-17 11:24] LABS: CHLORIDE 108 mmol/L (98-107); POTASSIUM 4.5 mmol/L (3.5-5.1); SODIUM 140 mmol/L (136-145)
[2023-06-17 11:30] LABS: HEMOGLOBIN 11.3 GM/dL (11.7-16.9); MCH 31.7 pg (25.7-33.7); MCHC 33.2 g/dl (32.0-35.9); MEAN CELL VOLUME 95.5 fl (80-96); MEAN PLT VOLUME 8.4 fl (7.5-11.1); PLATELET COUNT 208 10^3/uL (134-434); RBC 3.56 M/mm3 (4.00-5.60); RDW 14.2 % (11.9-15.9); WHITE BLOOD COUNT 4.1 K/mm3 (4.0-10.0)
[2023-06-17 11:46] LABS: ANION GAP 7 mmol/L (4-13); BLOOD UREA NITROGEN 21.6 mg/dL (7-18); CO2 24 mmol/L (21-32); GLUCOSE,RANDOM 135 mg/dL (74-106)
[2023-06-17 11:49] LABS: CREATININE 1.2 mg/dL (0.55-1.3); SGOT/AST 26 U/L (15-37); SGPT/ALT 26 U/L (13-61)
[2023-06-17 11:50] LABS: BILIRUBIN,TOTAL 0.4 mg/dL (0.2-1); TOT PROT 6.8 g/dl (6.4-8.2)
[2023-06-17 11:52] LABS: ALK PHOS 70 U/L (45-117)
[2023-06-17] MEDS: MELATONIN 5 MG TABLETS PO SCH (21:33)
[2023-06-17] MEDS: THIAMINE HCL 100 MG TABLET (FP) PO SCH (21:33)
[2023-06-18] MEDS: BICTEGRAV/EMTRICIT/TENOFOV (BIKTARVY) 50-200-25 MG TABLET PO SCH (07:01)
[2023-06-18] MEDS: METHOCARBAMOL 500 MG TABLET PO PRN (07:02)
[2023-06-18] MEDS: IBUPROFEN 600 MG TABLET (FP) PO PRN (07:02)
[2023-06-18] MEDS: hydrOXYzine PAMOATE 25 MG CAPSULE (FP) PO PRN (07:05)
[2023-06-18 07:21] VITALS: BP 105/81; PULSE 85; TEMP 97.3
[2023-06-18] MEDS ORDERED: FLU VACCINE (FLULAVAL) PF 60 MCG/0.5 ML SYRINGE 2023-2024 IM ONE (12:00)
== END 2023-06-18 07:27 | disposition left against medical advice (07) | DRG 770 ==
LOC: YASAS 10:15 → Y3W 15:56
PROVIDERS: ADMIT Allergy & Immunology; ATTEND Psychiatry & Neurology Pain Medicine
PROC: HZ42ZZZ Group Counseling for Substance Abuse Treatment, Cognitive-Behavioral (ICD-10-PCS; principal; 2023-06-16)
DX: F10.20 Alcohol dependence, uncomplicated (principal); F14.20 Cocaine dependence, uncomplicated; F17.210 Nicotine dependence, cigarettes, uncomplicated; F19.24 Other psychoactive substance dependence with psychoactive substance-induced mood disorder; Z21 Asymptomatic human immunodeficiency virus [HIV] infection status; G62.9 Polyneuropathy, unspecified; M16.12 Unilateral primary osteoarthritis, left hip; R63.4 Abnormal weight loss; Z68.1 Body mass index [BMI] 19.9 or less, adult; Z99.89 Dependence on other enabling machines and devices
CPT/HCPCS: 0241U-QW; 36415; 80053; 80307; 81003; 85027; 86780

== ENCOUNTER 2024-01-15 21:30 | Emergency (ER) | payer OTHER ==
[2024-01-15 21:45] VITALS: RESP 16; TEMP 96.8; BMI 20.9
[2024-01-15] MEDS ORDERED: KETOROLAC TROMETHAMINE 30 MG/1 ML VIAL ONE (22:41)
[2024-01-15] MEDS ORDERED: ACETAMINOPHEN 325 MG TABLET (FP) ONE (22:41)
[2024-01-15] MEDS: KETOROLAC TROMETHAMINE 30 MG/1 ML VIAL IM ONE (22:48)
[2024-01-15] MEDS: ACETAMINOPHEN 500 MG TABLET (FP) PO ONE (22:48)
[2024-01-16 02:58] VITALS: BP 132/79; PULSE 65
== END 2024-01-16 07:58 | disposition home or self-care (01) ==
LOC: JER 21:30
PROC: 3E0233Z Introduction of Anti-inflammatory into Muscle, Percutaneous Approach (ICD-10-PCS; principal; 2024-01-15)
DX: M25.552 Pain in left hip (principal); M16.12 Unilateral primary osteoarthritis, left hip
CPT/HCPCS: 72170-TC-FY; 72192-TC; 73502-TC-LT-FY; 73552-TC-LT-FY; 99284-25